=== PATIENT | female | born 1980 | race Caucasian/White ===

== ENCOUNTER 2016-05-20 13:14 | Inpatient (IN) | payer OTHER ==
[2016-05-20 15:44] VITALS: BMI 20.2
--- NOTE | 2016-05-20 16:46 | HP ---
Admission ROS [facility] Chief Complaint: I need help to stop using drugs. History of Present Illness: 36 y/o m pt with a h/o heroin , , percocet and cocaine dep. seeking rehab . Exam Limitations: No Limitations - Ebola screening Have you traveled outside of the country in the last 21 days: No Have you had contact with anyone from an Ebola affected area: No Have you been sick,other than usual withdrawal symptoms: No Do you have a fever: No - Review of Systems Constitutional: No Symptoms Reported EENT: reports: No Symptoms Reported Respiratory: reports: No Symptoms reported GI: reports: No Symptoms Reported, Indigestion : reports: No Symptoms Reported Integumentary: reports: No Symptoms Reported Neuro: reports: No Symptoms reported Hematology: reports: No Symptoms Reported Psychiatric: reports: Agitated, Anxious, Depressed Other Systems: Reviewed and Negative Patient History - Patient Medical History Hx Anemia: No Hx Asthma: No Hx Chronic Obstructive Pulmonary Disease (COPD): No Hx Cancer: No Hx Cardiac Disorders: No Hx Congestive Heart Failure: No Hx Hypertension: No Hx Hypercholesterolemia: No Hx Pacemaker: No HX Cerebrovascular Accident: No Hx Seizures: No Hx Dementia: No Hx Diabetes: No Hx Gastrointestinal Disorders: Yes (gerd) Hx Liver Disease: No Hx Genitourinary Disorders: No Hx Sexually Transmitted Disorders: No Hx Renal Disease (ESRD): No Hx Thyroid Disease: No Hx Hepatitis C: No Hx Depression: Yes Hx Suicide Attempt: Yes (2012 attempted to hang herself ) Hx Bipolar Disorder: Yes (ptsd) Hx Schizophrenia: No - Patient Surgical History Other Surgical History: 2009 ectopic rupture - PPD History Previous Implant?: No Documented Results: Positive w/o proof PPD to be Administered?: No - Reproductive History Patient is a Female of Child Bearing Age (11 -55 yrs old): Yes Last Menstrual Period: 05/19/16 Patient : No - Smoking Cessation Smoking history: Current every day smoker Have you smoked in the past 12 months: Yes Aproximately how many cigarettes per day: 8 Cigars Per Day: 0 Hx Chewing Tobacco Use: No Initiated information on smoking cessation: Yes 'Breaking Loose' booklet given: 05/20/16 - Substance & Tx. History Hx Alcohol Use: No Hx Substance Use: Yes Substance Use Type: Cocaine, Heroin, Opiates Hx Substance Use Treatment: Yes - Substances Abused Heroin Frequency: 1-3 times last 30 days Amount used: 2 bags Age of first use: 36 Date of Last Use: 05/15/16 percocet 10/325 Route: Oral Frequency: Daily Amount used: 4-6 tabs/d Age of first use: 35 Date of Last Use: 05/13/16 Crack Route: Smoking Amount used: $20. Age of first use: 25 Date of Last Use: 05/16/16 Family Disease History - Family Disease History Family History: Denies Admission Physical Exam [facility] - Vital Signs Vital Signs: Vital Signs - 24 hr 05/20/16 15:41 Temperature 97 F L Pulse Rate 79 Respiratory 20 Rate Blood Pressure 126/80 - Physical General Appearance: Yes: Disheveled, Anxious HEENTM: Yes: EOMI, Hearing grossly Normal, Normocephalic, Normal Voice Respiratory: Yes: Within Normal Limits, Chest Non-Tender, Normal Breath Sounds, Labored Respiration Neck: Yes: No masses,lesions,Nodules, Supple Breast: Yes: Breast Exam Deferred Abdominal: Yes: Normal Bowel Sounds, Non Tender, Flat, Soft. No: Decreased BS Genitourinary: Yes: Within Normal Limits Back: Yes: Within Normal Limits Musculoskeletal: Yes: Within Normal Limits Extremities: Yes: Within Normal Limits Neurological: Yes: Within Normal Limits, clay miller II-XII NML intact, Fully Oriented, Alert, Motor Strength 5/5, Respond to painful stimul Integumentary: Yes: Within Normal Limits Lymphatic: Yes: Within Normal Limits - Diagnostic (1) Opioid dependence Current Visit: Yes Status: Chronic Qualifiers: Complication of substance-induced condition: uncomplicated (2) Cocaine dependence Current Visit: Yes Status: Chronic (3) Nicotine dependence Current Visit: Yes Status: Chronic Qualifiers: Nicotine product type: cigarettes Substance use status: uncomplicated Qualified Code(s): F17.210 - Nicotine dependence, cigarettes, uncomplicated Cleared for Admission [facility] - Detox or Rehab Claeared for Rehab Admission: Yes [facility] Breath Alcohol Content Breath Alcohol Content: 0 Urine Pregancy Test - Result Urine Test Results: Negative- NO Line Present Urine Drug Screen - Results Drug Screen Negative: No Urine Drug Screen Results: JESSENIA-Cocaine, OPI-Opiates, MTD-Methadone
[2016-05-20] MEDS ORDERED: MAGNESIUM HYDROX 2400MG/30ML ORAL SUSPENSION 30 ML CUP PO PRN (17:06)
[2016-05-20] MEDS ORDERED: P-EPHED 60MG/TRIPROLIDI 2.5MG TABLET PO PRN (17:06)
[2016-05-20] MEDS ORDERED: MENTHOL/PHENOL 1 EACH UD MM PRN (17:06)
[2016-05-20] MEDS ORDERED: guaiFENesin/D-METHORPHAN HB 10 ML UNIT-DOSE CUPS PO PRN (17:06)
[2016-05-20] MEDS ORDERED: diphenhydrAMINE HCL 50 MG CAPSULE PO PRN (17:06)
[2016-05-20] MEDS ORDERED: MAGNESIUM CITRATE 300 ML BOTTLE PO PRN (17:06)
[2016-05-20] MEDS ORDERED: NICOTINE POLACRILEX 4 MG GUM BC PRN (17:06)
[2016-05-20] MEDS ORDERED: LOPERAMIDE HCL 2 MG CAPSULE PO PRN (17:06)
[2016-05-20] MEDS: THIAMINE HCL 100 MG TABLET (FP) PO SCH (22:46)
[2016-05-20] MEDS: OLANZapine 7.5 MG TABLET PO SCH (22:46)
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
--- NOTE | 2016-05-21 10:00 | EKG ---
Test Reason : Blood Pressure : / mmHG Vent. Rate : 072 BPM Atrial Rate : 072 BPM P-R Int : 154 ms QRS Dur : 084 ms QT Int : 392 ms P-R-T Axes : 062 033 060 degrees QTc Int : 429 ms NORMAL SINUS RHYTHM POOR R WAVE PROGRESSION ABNORMAL ECG NO PREVIOUS ECGS AVAILABLE Confirmed by HEIKE VAUGHN MD ([id number]) on 05/21/2016 10:00:23 AM Referred By: Confirmed By:HEIKE VAUGHN MD
[2016-05-21] MEDS: NICOTINE 14 MG/24 HOURS TOPICAL PATCH TD SCH (10:08)
[2016-05-21] MEDS: PRENATAL VITAMINS W/ FOLIC ACID TABLET (FP) PO SCH (10:08)
[2016-05-21 10:11] LABS: MCH 31.3 pg (25.7-33.7); MCHC 33.6 g/dl (32.0-36.0); MEAN CELL VOLUME 93.1 fl (80-96); MEAN PLT VOLUME 9.5 fl (7.5-11.1); PLATELET COUNT 209 K/MM3 (134-434); RDW 13.1 % (11.6-15.6); WHITE BLOOD COUNT 6.1 K/mm3 (4.0-10.0)
[2016-05-21 10:34] LABS: ALBUMIN 3.2 g/dl (3.4-5.0); ANION GAP 8 (8-16); CALCIUM 8.4 mg/dL (8.5-10.1); CO2 26 mmol/L (21-32); COCKROFT - GAULT 96.1265; CREATININE 0.7 mg/dL (0.55-1.02); GLUCOSE,RANDOM 89 mg/dL (74-106); SGOT/AST 11 U/L (15-37)
[2016-05-21 10:37] LABS: ALK PHOS 47 U/L (45-117); BILIRUBIN,TOTAL 0.1 mg/dL (0.2-1.0); SGPT/ALT 15 U/L (12-78)
--- NOTE | 2016-05-21 11:31 | PN ---
[facility] Progress Note Note: xray right foot noted,advise follow up with pmd or ear nose throat physician if nay problem after discharge
[2016-05-21] MEDS: IBUPROFEN 400 MG TABLET (FP) PO PRN (11:54)
[2016-05-21 17:58] LABS: URINE APPEARANCE SLCLOUDY; URINE BILIRUBIN NEGATIVE (NEGATIVE); URINE BLOOD 1+ (NEGATIVE); URINE COLOR YELLOW; URINE GLUCOSE (UA) NEGATIVE (NEGATIVE); URINE KETONE NEGATIVE (NEGATIVE); URINE LEUK ESTERASE TRACE (NEGATIVE); URINE NITRITE NEGATIVE (NEGATIVE); URINE PROTEIN NEGATIVE (NEGATIVE); URINE UROBILINOGEN NEGATIVE E.U./dl (0.2-1.0)
[2016-05-21 19:15] LABS: CALCIUM OXALATE CRYSTALS MANY /hpf (NONE SEEN); URINE MUCUS FEW; URINE RBC 46 /hpf (0-3); URINE WBC 4 /hpf (3-5)
[2016-05-21] MEDS: OLANZapine 7.5 MG TABLET PO SCH (21:15)
[2016-05-21] MEDS: ACETAMINOPHEN 325 MG TABLET (FP) PO PRN (21:15)
[2016-05-21] MEDS: THIAMINE HCL 100 MG TABLET (FP) PO SCH (21:15)
[2016-05-22] MEDS: PRENATAL VITAMINS W/ FOLIC ACID TABLET (FP) PO SCH (10:04)
[2016-05-22] MEDS: NICOTINE 14 MG/24 HOURS TOPICAL PATCH TD SCH (10:04)
[2016-05-22] MEDS ORDERED: PT OWN MED DRAWER 7, Y5N ONE (19:16)
[2016-05-22] MEDS: THIAMINE HCL 100 MG TABLET (FP) PO SCH (21:13)
[2016-05-22] MEDS: ACETAMINOPHEN 325 MG TABLET (FP) PO PRN (22:05)
[2016-05-22] MEDS: OLANZapine 7.5 MG TABLET PO SCH (22:05)
[2016-05-22] MEDS: MAG HYDROX/AL HYDROX/SIMETH 30 ML UNIT-DOSE CUP PO PRN (22:05)
[2016-05-23] MEDS: PRENATAL VITAMINS W/ FOLIC ACID TABLET (FP) PO SCH (10:19)
[2016-05-23] MEDS: NICOTINE 14 MG/24 HOURS TOPICAL PATCH TD SCH (10:19)
[2016-05-23] MEDS: ACETAMINOPHEN 325 MG TABLET (FP) PO PRN ×2 (15:03→21:14)
[2016-05-23] MEDS: OLANZapine 7.5 MG TABLET PO SCH (21:13)
[2016-05-23] MEDS: THIAMINE HCL 100 MG TABLET (FP) PO SCH (21:13)
[2016-05-24] MEDS: PRENATAL VITAMINS W/ FOLIC ACID TABLET (FP) PO SCH (10:51)
[2016-05-24] MEDS: NICOTINE 14 MG/24 HOURS TOPICAL PATCH TD SCH (10:51)
[2016-05-24] MEDS: ACETAMINOPHEN 325 MG TABLET (FP) PO PRN ×2 (16:01→21:52)
[2016-05-24] MEDS: MAG HYDROX/AL HYDROX/SIMETH 30 ML UNIT-DOSE CUP PO PRN (16:02)
[2016-05-24] MEDS: THIAMINE HCL 100 MG TABLET (FP) PO SCH (21:11)
[2016-05-24] MEDS: OLANZapine 7.5 MG TABLET PO SCH (21:12)
[2016-05-25] MEDS: ACETAMINOPHEN 325 MG TABLET (FP) PO PRN (09:06)
[2016-05-25] MEDS: NICOTINE 14 MG/24 HOURS TOPICAL PATCH TD SCH (09:07)
[2016-05-25] MEDS: PRENATAL VITAMINS W/ FOLIC ACID TABLET (FP) PO SCH (09:07)
[2016-05-25] MEDS ORDERED: PT OWN MED DRAWER 7, Y5N ONE (21:43)
[2016-05-25] MEDS: OLANZapine 7.5 MG TABLET PO SCH (22:07)
[2016-05-25] MEDS: THIAMINE HCL 100 MG TABLET (FP) PO SCH (22:07)
[2016-05-26] MEDS: PRENATAL VITAMINS W/ FOLIC ACID TABLET (FP) PO SCH (10:12)
[2016-05-26] MEDS: NICOTINE 14 MG/24 HOURS TOPICAL PATCH TD SCH (10:13)
[2016-05-26] MEDS: COLLOIDAL OATMEAL 1 BAR EACH TP PRN (17:27)
[2016-05-26] MEDS: THIAMINE HCL 100 MG TABLET (FP) PO SCH (21:21)
[2016-05-26] MEDS: OLANZapine 7.5 MG TABLET PO SCH (21:21)
[2016-05-27] MEDS ORDERED: PT OWN MED DRAWER 7, Y5N ONE ×2 (08:54→21:02)
[2016-05-27] MEDS: PRENATAL VITAMINS W/ FOLIC ACID TABLET (FP) PO SCH (10:09)
[2016-05-27] MEDS: NICOTINE 14 MG/24 HOURS TOPICAL PATCH TD SCH (10:10)
[2016-05-27] MEDS: MAG HYDROX/AL HYDROX/SIMETH 30 ML UNIT-DOSE CUP PO PRN (10:12)
[2016-05-27] MEDS ORDERED: FLUCONAZOLE 50 MG TABLET PO ONE (14:28)
[2016-05-27] MEDS: IBUPROFEN 400 MG TABLET (FP) PO PRN (18:22)
[2016-05-27] MEDS: OLANZapine 7.5 MG TABLET PO SCH (21:02)
[2016-05-27] MEDS: ACETAMINOPHEN 325 MG TABLET (FP) PO PRN (21:02)
[2016-05-27] MEDS: THIAMINE HCL 100 MG TABLET (FP) PO SCH (21:03)
[2016-05-28] MEDS: NICOTINE 14 MG/24 HOURS TOPICAL PATCH TD SCH (10:09)
[2016-05-28] MEDS: PRENATAL VITAMINS W/ FOLIC ACID TABLET (FP) PO SCH (10:09)
[2016-05-28] MEDS: IBUPROFEN 400 MG TABLET (FP) PO PRN (10:29)
[2016-05-28] MEDS ORDERED: hydrOXYzine PAMOATE 50 MG CAPSULE (FP) PO PRN (10:45)
--- NOTE | 2016-05-28 10:55 | PN ---
Psychiatric Progress Note Vital Signs: Vital Signs Period Temp Pulse Resp BP Sys/Aldridge Pulse Ox Last 24 Hr 98.6 F 81 18-18 114/68 Date of Session: 05/28/16 Chief Complaint:: "I'm feeling anxious and can't sleep" HPI: Patient addressing Opoid and Cocaine Dependence comorbid with Nicotine Dependence, Bipolar II Disorder and Posttraumatic Stress Disorder ROS: GERD, PPD+ Current Medications: Active Medications Generic Name Dose Route Start Last Admin Trade Name Freq PRN Reason Stop Dose Admin Acetaminophen 650 mg 05/20/16 17:06 05/27/16 21:02 Tylenol - PO 650 mg Q4H PRN Administration PAIN Al Hydroxide/Mg Hydroxide 30 ml 05/20/16 17:06 05/27/16 10:12 Mylanta Oral Suspension - PO 30 ml Q6H PRN Administration DYSPEPSIA Bupropion HCl 300 mg 05/21/16 10:00 05/28/16 10:10 Wellbutrin Xl - PO 300 mg DAILY DONNY Administration Colloidal Oatmeal 1 applic 05/26/16 12:45 05/26/16 17:27 Aveeno Soap - TP 1 applic DAILY PRN Administration HYGEINE Diphenhydramine HCl 50 mg 05/20/16 17:06 05/27/16 21:01 Benadryl - PO 50 mg HSMR1 PRN Administration INSOMNIA Eucalyptus/Menthol/Phenol/Sorbitol 1 each 05/20/16 17:06 Cepastat Lozenge - MM Q4H PRN SORE THROAT Guaifenesin 10 ml 05/20/16 17:06 05/25/16 09:07 Robitussin Dm - PO 10 ml Q6H PRN Administration COUGH Hydroxyzine Pamoate 50 mg 05/28/16 10:45 Vistaril - PO Q4H PRN ANXIETY Ibuprofen 400 mg 05/20/16 17:06 05/28/16 10:29 Motrin - PO 400 mg Q6H PRN Administration SEVERE PAIN Loperamide HCl 4 mg 05/20/16 17:06 Imodium - PO Q6H PRN DIARRHEA Magnesium Citrate 300 ml 05/20/16 17:06 Citroma - PO Q48H PRN CONSTIPATION Magnesium Hydroxide 30 ml 05/20/16 17:06 Milk Of Magnesia - PO DAILY PRN CONSTIPATION Nicotine 14 mg 05/21/16 10:00 05/28/16 10:09 Nicoderm Patch - TD 14 mg DAILY DONNY Administration Nicotine Polacrilex 4 mg 05/20/16 17:06 Nicorette Gum - BC Q2H PRN NICOTINE REPLACEMENT RX Olanzapine 7.5 mg 05/28/16 20:00 Zyprexa - PO HS DONNY Multivit/Folic Acid/Iron 1 tab 05/21/16 10:00 05/28/16 10:09 Vitamins (Sjr) - PO 1 tab DAILY DONNY Administration Pseudoephedrine/Triprolidine 1 combo 05/20/16 17:06 Actifed - PO TID PRN NASAL CONGESTION Thiamine HCl 100 mg 05/20/16 22:00 05/27/16 21:03 Vitamin B1 - PO 100 mg HS DONNY Administration Medication(s) Change(s): Start Vistaril 50 mg po Q4 hrs prn for anxiety Current Side Effect: No Lab tests ordered: Yes Lab tests reviewed: Yes Provider note:: Patient reports that she has been feeling anxious and sleeping poorly. She said that she has used Xanax before but she is aware that she will not be prescribed that medication in that setting. She requests to be ordered Vistaril. Benefits vs Risks of medication discussed with patient and she agreed to try it Total face to face time:: 25 Mental Status Exam - Mental Status Exam Alert and Oriented to: Time, Place, Person Cognitive Function: Fair Patient Appearance: Well Groomed Mood: Anxious Affect: Appropriate Patient Behavior: Cooperative Speech Pattern: Clear Voice Loudness: Normal Thought Process: Intact Thought Disorder: Not Present Hallucinations: Denies Suicidal Ideation: Denies Homicidal Ideation: Denies Insight/Judgement: Fair Sleep: Poorly Appetite: Good Muscle strength/Tone: Normal Gait/Station: Normal Psychiatric Treatment Plan - Problem List (1) Opioid dependence Current Visit: Yes Qualifiers: Complication of substance-induced condition: uncomplicated (2) Cocaine dependence Current Visit: Yes (3) Nicotine dependence Current Visit: Yes Qualifiers: Nicotine product type: cigarettes Substance use status: uncomplicated Qualified Code(s): F17.210 - Nicotine dependence, cigarettes, uncomplicated (4) Bipolar II disorder Current Visit: Yes (5) PTSD (post-traumatic stress disorder) Current Visit: Yes (6) GERD (gastroesophageal reflux disease) Current Visit: Yes (7) PPD positive Current Visit: Yes Initial treatment plan: 1) Start Vistaril 50 mg po Q 4hrs prn for anxiety. 2) Monitor progress
[2016-05-28] MEDS: CYCLOBENZAPRINE HCL 10 MG TABLET (FP) PO SCH ×2 (11:23→21:39)
[2016-05-28] MEDS: ACETAMINOPHEN 325 MG TABLET (FP) PO PRN ×2 (13:17→18:07)
[2016-05-28] MEDS ORDERED: PT OWN MED DRAWER 7, Y5N ONE ×3 (19:48→20:40)
[2016-05-28] MEDS: OLANZapine 7.5 MG TABLET PO SCH ×2 (20:00→21:52)
[2016-05-28] MEDS: THIAMINE HCL 100 MG TABLET (FP) PO SCH (21:39)
[2016-05-29] MEDS: ACETAMINOPHEN 325 MG TABLET (FP) PO PRN ×3 (00:54→16:23)
[2016-05-29] MEDS: CYCLOBENZAPRINE HCL 10 MG TABLET (FP) PO SCH ×2 (10:05→21:26)
[2016-05-29] MEDS: NICOTINE 14 MG/24 HOURS TOPICAL PATCH TD SCH (10:05)
[2016-05-29] MEDS: PRENATAL VITAMINS W/ FOLIC ACID TABLET (FP) PO SCH (10:05)
[2016-05-29] MEDS: THIAMINE HCL 100 MG TABLET (FP) PO SCH (21:26)
[2016-05-29] MEDS ORDERED: PT OWN MED DRAWER 7, Y5N ONE (21:26)
[2016-05-29] MEDS: OLANZapine 7.5 MG TABLET PO SCH (21:26)
[2016-05-30] MEDS: NICOTINE 14 MG/24 HOURS TOPICAL PATCH TD SCH (09:47)
[2016-05-30] MEDS: CYCLOBENZAPRINE HCL 10 MG TABLET (FP) PO SCH ×2 (09:47→23:14)
[2016-05-30] MEDS: PRENATAL VITAMINS W/ FOLIC ACID TABLET (FP) PO SCH (09:47)
[2016-05-30] MEDS: ACETAMINOPHEN 325 MG TABLET (FP) PO PRN (17:29)
[2016-05-30] MEDS: IBUPROFEN 400 MG TABLET (FP) PO PRN (21:07)
[2016-05-30] MEDS: OLANZapine 7.5 MG TABLET PO SCH (21:07)
[2016-05-30] MEDS: THIAMINE HCL 100 MG TABLET (FP) PO SCH (23:14)
[2016-05-31] MEDS: NICOTINE 14 MG/24 HOURS TOPICAL PATCH TD SCH (10:03)
[2016-05-31] MEDS: PRENATAL VITAMINS W/ FOLIC ACID TABLET (FP) PO SCH (10:03)
[2016-05-31] MEDS: CYCLOBENZAPRINE HCL 10 MG TABLET (FP) PO SCH ×2 (10:03→21:22)
[2016-05-31 10:53] LABS: HIV 1 & 2 AB NEGATIVE; HIV 1 AGp24 NEGATIVE
[2016-05-31] MEDS: IBUPROFEN 400 MG TABLET (FP) PO PRN (13:36)
[2016-05-31] MEDS ORDERED: PT OWN MED DRAWER 7, Y5N ONE (19:38)
[2016-05-31] MEDS: OLANZapine 7.5 MG TABLET PO SCH (21:22)
[2016-05-31] MEDS: THIAMINE HCL 100 MG TABLET (FP) PO SCH (21:22)
[2016-05-31] MEDS: ACETAMINOPHEN 325 MG TABLET (FP) PO PRN (21:23)
[2016-06-01 06:38] VITALS: TEMP 98.3
[2016-06-01] MEDS: ACETAMINOPHEN 325 MG TABLET (FP) PO PRN ×2 (07:37→21:23)
[2016-06-01] MEDS: NICOTINE 14 MG/24 HOURS TOPICAL PATCH TD SCH (10:06)
[2016-06-01] MEDS: PRENATAL VITAMINS W/ FOLIC ACID TABLET (FP) PO SCH (10:06)
[2016-06-01] MEDS: CYCLOBENZAPRINE HCL 10 MG TABLET (FP) PO SCH ×2 (10:07→23:43)
[2016-06-01] MEDS ORDERED: PT OWN MED DRAWER 7, Y5N ONE (21:22)
[2016-06-01] MEDS: OLANZapine 7.5 MG TABLET PO SCH (21:22)
[2016-06-01] MEDS: THIAMINE HCL 100 MG TABLET (FP) PO SCH (23:43)
[2016-06-02] MEDS: ACETAMINOPHEN 325 MG TABLET (FP) PO PRN ×2 (07:08→17:04)
[2016-06-02] MEDS: COLLOIDAL OATMEAL 1 BAR EACH TP PRN (07:24)
[2016-06-02] MEDS: PRENATAL VITAMINS W/ FOLIC ACID TABLET (FP) PO SCH (09:48)
[2016-06-02] MEDS: NICOTINE 14 MG/24 HOURS TOPICAL PATCH TD SCH (09:49)
[2016-06-02] MEDS: CYCLOBENZAPRINE HCL 10 MG TABLET (FP) PO SCH ×2 (09:50→21:21)
[2016-06-02] MEDS: MAG HYDROX/AL HYDROX/SIMETH 30 ML UNIT-DOSE CUP PO PRN (19:03)
[2016-06-02] MEDS ORDERED: PT OWN MED DRAWER 7, Y5N ONE (19:36)
[2016-06-02] MEDS: OLANZapine 7.5 MG TABLET PO SCH (21:21)
[2016-06-02] MEDS: THIAMINE HCL 100 MG TABLET (FP) PO SCH (21:21)
[2016-06-03] MEDS: ACETAMINOPHEN 325 MG TABLET (FP) PO PRN (06:22)
[2016-06-03 06:48] VITALS: BP 117/78; PULSE 96
--- NOTE | 2016-06-03 09:15 | PN ---
Psychiatric Progress Note Vital Signs: Vital Signs Period Temp Pulse Resp BP Sys/Aldridge Pulse Ox Last 24 Hr 98.3 F 96 18-18 117/78 Date of Session: 06/03/16 Chief Complaint:: Discharge Note HPI: Patient addressing Opoid and Cocaine Dependence comorbid with Nicotine Dependence, Bipolar II Disorder and Posttraumatic Stress Disorder ROS: GERD, PPD+ were medically managed Current Medications: Active Medications Generic Name Dose Route Start Last Admin Trade Name Freq PRN Reason Stop Dose Admin Acetaminophen 975 mg 05/31/16 13:31 06/03/16 06:22 Tylenol - PO 975 mg Q6H PRN Administration PAIN Al Hydroxide/Mg Hydroxide 30 ml 05/20/16 17:06 06/02/16 19:03 Mylanta Oral Suspension - PO 30 ml Q6H PRN Administration DYSPEPSIA Bupropion HCl 300 mg 05/21/16 10:00 06/02/16 09:48 Wellbutrin Xl - PO 300 mg DAILY DONNY Administration Colloidal Oatmeal 1 applic 05/26/16 12:45 06/02/16 07:24 Aveeno Soap - TP 1 applic DAILY PRN Administration HYGEINE Cyclobenzaprine HCl 10 mg 05/28/16 11:15 06/02/16 21:21 Flexeril - PO Not Given BID DONNY Diphenhydramine HCl 50 mg 05/20/16 17:06 05/27/16 21:01 Benadryl - PO 50 mg HSMR1 PRN Administration INSOMNIA Eucalyptus/Menthol/Phenol/Sorbitol 1 each 05/20/16 17:06 Cepastat Lozenge - MM Q4H PRN SORE THROAT Guaifenesin 10 ml 05/20/16 17:06 05/25/16 09:07 Robitussin Dm - PO 10 ml Q6H PRN Administration COUGH Hydroxyzine Pamoate 50 mg 05/28/16 10:45 05/28/16 21:39 Vistaril - PO 50 mg Q4H PRN Administration ANXIETY Ibuprofen 400 mg 05/20/16 17:06 05/31/16 13:36 Motrin - PO 400 mg Q6H PRN Administration SEVERE PAIN Loperamide HCl 4 mg 05/20/16 17:06 Imodium - PO Q6H PRN DIARRHEA Magnesium Citrate 300 ml 05/20/16 17:06 Citroma - PO Q48H PRN CONSTIPATION Magnesium Hydroxide 30 ml 05/20/16 17:06 Milk Of Magnesia - PO DAILY PRN CONSTIPATION Nicotine 14 mg 05/21/16 10:00 06/02/16 09:49 Nicoderm Patch - TD 14 mg DAILY DONNY Administration Nicotine Polacrilex 4 mg 05/20/16 17:06 Nicorette Gum - BC Q2H PRN NICOTINE REPLACEMENT RX Olanzapine 7.5 mg 05/28/16 20:00 06/02/16 21:21 Zyprexa - PO 7.5 mg HS DONNY Administration Multivit/Folic Acid/Iron 1 tab 05/21/16 10:00 06/02/16 09:48 Vitamins (Sjr) - PO 1 tab DAILY DONNY Administration Pseudoephedrine/Triprolidine 1 combo 05/20/16 17:06 Actifed - PO TID PRN NASAL CONGESTION Thiamine HCl 100 mg 05/20/16 22:00 06/02/16 21:21 Vitamin B1 - PO Not Given HS DONNY Current Side Effect: No Lab tests ordered: Yes Lab tests reviewed: Yes Provider note:: Patient has completed this progra today. She has met her treatment goals and will continue to address her issues in outpatient treatment at [facility]. Told publications writer that from her participation in this program, she has gained insight into the issues resposible for her addiction and has learned of ways to address them. She responded well to Wellbutrin XL 300 mg po daily and Zyprexa 7.5 mg po HS. Scripts for 30 days supply of these 2 medications are electronically transmitted to [facility] pharmacy at [address] [place] [address]. She is stable for discharge today Total face to face time:: 35 Mental Status Exam - Mental Status Exam Alert and Oriented to: Time, Place, Person Cognitive Function: Fair Patient Appearance: Well Groomed Mood: Hopeful, Euthymic Affect: Appropriate Patient Behavior: Cooperative Speech Pattern: Clear Voice Loudness: Normal Thought Process: Intact Thought Disorder: Not Present Hallucinations: Denies Suicidal Ideation: Denies Homicidal Ideation: Denies Insight/Judgement: Fair Sleep: Fair Appetite: Good Muscle strength/Tone: Normal Gait/Station: Normal Psychiatric Treatment Plan - Problem List (1) Opioid dependence Qualifiers: Complication of substance-induced condition: uncomplicated (3) Nicotine dependence Qualifiers: Nicotine product type: cigarettes Substance use status: uncomplicated Qualified Code(s): F17.210 - Nicotine dependence, cigarettes, uncomplicated (7) PPD positive Initial treatment plan: Patient is discharged today and referred to [facility] for outpatient treatment
[2016-06-03] MEDS: NICOTINE 14 MG/24 HOURS TOPICAL PATCH TD SCH (09:42)
[2016-06-03] MEDS: PRENATAL VITAMINS W/ FOLIC ACID TABLET (FP) PO SCH (09:42)
[2016-06-03] MEDS: CYCLOBENZAPRINE HCL 10 MG TABLET (FP) PO SCH (09:42)
== END 2016-06-03 10:05 | disposition home or self-care (01) | DRG 772 ==
LOC: YASAS 13:14 → Y3W 17:30
PROVIDERS: ADMIT Psychiatry & Neurology Psychiatry; ATTEND Psychiatry & Neurology Psychiatry
PROC: HZ42ZZZ Group Counseling for Substance Abuse Treatment, Cognitive-Behavioral (ICD-10-PCS; principal; 2016-05-20)
DX: F11.20 Opioid dependence, uncomplicated (principal); F14.20 Cocaine dependence, uncomplicated; F17.210 Nicotine dependence, cigarettes, uncomplicated; F31.81 Bipolar II disorder; F43.10 Post-traumatic stress disorder, unspecified; K21.9 Gastro-esophageal reflux disease without esophagitis; R76.11 Nonspecific reaction to tuberculin skin test without active tuberculosis; Z91.5 Personal history of self-harm
CPT/HCPCS: 36415; 71020-TC; 73630-TC-RT; 80053; 81003; 81015; 84702; 85027; 86593; 87389; 93005; 93010

== ENCOUNTER 2019-08-17 18:12 | Inpatient (IN) | payer OTHER ==
--- NOTE | 2019-08-17 22:04 | HP ---
COWS - Scale Resting Pulse: 0= [place] 80 or Below Sweatin= Chills/Flushing Restless Observation: 5= Unable to Sit Still Pupil Size: 0= Normal to Room Light Bone or Joint Aches: 4=Acute Joint/Muscle Pain Runny Nose/ Eye Tearin= Nasal Congestion GI Upset > 30mins: 0= None Tremor Observation: 0= None Yawning Observation: 0= None Anxiety or Irritability: 2=Irritable/Anxious Goose Flesh Skin: 0=Smooth Skin COWS Score: 13 CIWA Score Nausea/Vomitin-No Nausea/No Vomiting Muscle Tremors: None Anxiety: 4-Mod. Anxious/Guarded Agitation: 4-Moderately Restless Paroxysmal Sweats: 3 Orientation: 0-Oriented Tacttile Disturbances: 0-None Auditory Disturbances: 0-None Visual Disturbances: 0-None Headache: 3-Moderate CIWA-Ar Total Score: 14 - Admission Criteria OASAS Guidelines: Admission for Medically Managed Detox: Requires at least one of the followin. CIWA greater than 12 2. Seizures within the past 24 hours 3. Delirium tremens within the past 24 hours 4. Hallucinations within the past 24 hours 5. Acute intervention needed for co occurring medical disorder 6. Acute intervention needed for co occurring psychiatric disorder 7. Severe withdrawal that cannot be handled at a lower level of care (continued vomiting, continued diarrhea, abnormal vital signs) requiring intravenous medication and/or fluids 8. Patient presents the following: CIWA greater than 12 Admission Criteria Met: Admission criteria met Admitting History and Physical - Past Medical History ...LMP: 05/19/16 - Smoking History Smoking history: Current every day smoker Have you smoked in the past 12 months: Yes Aproximately how many cigarettes per day: 8 - Alcohol/Substance Use Hx Alcohol Use: No Admission ROS [facility] Chief Complaint: SEEKING DETOX FOR XANAX AND HEROIN. C/O WITHDRAWAL SX'S Allergies/Adverse Reactions: Allergies Allergy/AdvReac Type Severity Reaction Status Date / Time medroxyprogesterone acetate Allergy Intermediate Hives Verified 06/29/11 19:24 [From Depo-Provera Contraceptive] History of Present Illness: HERE FOR HEROIN/ XANAX DEPENDENCE. CLIENT IS KNOWN TO THE PROGRAM. SELF REFERRED. LAST HERE 2016. PRESENTS TODAY WITH C/O WITHDRAWAL SX'S. USING HEROIN, XANAX DAILY. LAST USE EARLY THIS MORNING. DENIES HX/O IVDU, DRUG OVERDOSE, BLACKOUTS, SEIZURES. DENIES ANY SIGNIFICANT PERIOD OF CLEAN TIME IN THE PAST 12 MONTHS. LIVES ALONE, UNEMPLOYED, DENIES LEGALS Exam Limitations: No Limitations - Ebola screening Have you traveled outside of the country in the last 21 days: No Have you had contact with anyone from an Ebola affected area: No Have you been sick,other than usual withdrawal symptoms: No Do you have a fever: No - Review of Systems Constitutional: Chills, Loss of Appetite, Malaise, Night Sweats, Changes in sleep, Unintentional Wgt. Loss EENT: reports: Nose Congestion Respiratory: reports: Other (HX/O +PPD) Cardiac: reports: No Symptoms Reported GI: reports: Poor Appetite, Poor Fluid Intake : reports: No Symptoms Reported Musculoskeletal: reports: Back Pain, Joint Pain, Neck Pain, Other (SCOLIOSIS) Integumentary: reports: No Symptoms Reported Neuro: reports: Headache, Numbness (PINCHED NERVE IN RIGHT HAND) Endocrine: reports: No Symptoms Reported Hematology: reports: Anemia Psychiatric: reports: Orientated x3, Agitated (IRRITBALE), Anxious, Depressed Other Systems: Reviewed and Negative Patient History - Patient Medical History Hx Anemia: Yes Hx Asthma: No Hx Chronic Obstructive Pulmonary Disease (COPD): No Hx Cancer: No Hx Cardiac Disorders: No Hx Congestive Heart Failure: No Hx Hypertension: No Hx Hypercholesterolemia: No Hx Pacemaker: No HX Cerebrovascular Accident: No Hx Seizures: No Hx Dementia: No Hx Diabetes: No Hx Gastrointestinal Disorders: Yes (GERD) Hx Liver Disease: No Hx Genitourinary Disorders: No Hx Sexually Transmitted Disorders: No Hx Renal Disease (ESRD): No Hx Thyroid Disease: No Hx Human Immunodeficiency Virus (HIV): No Hx Hepatitis C: No Hx Depression: Yes Hx Suicide Attempt: Yes (2012 attempted to hang herself ) Hx Bipolar Disorder: Yes (ptsd) Hx Schizophrenia: No Other Medical History: DENIES - Patient Surgical History Past Surgical History: Yes Hx Neurologic Surgery: No Hx Cataract Extraction: No Hx Cardiac Surgery: No Hx Lung Surgery: No Hx Breast Surgery: No Hx Breast Biopsy: No Hx Abdominal Surgery: No Hx Appendectomy: No Hx Cholecystectomy: No Hx Genitourinary Surgery: No Hx Section: No Hx Orthopedic Surgery: No Other Surgical History: 2009 ectopic rupture Anesthesia Reaction: No - PPD History Previous Implant?: Yes Documented Results: Positive w/o proof Implanted On Prior [facility] Admission?: No Results: 2017 CXR - PPD to be Administered?: No - Reproductive History Last Menstrual Period: 08/10/19 (NUVA RING) LMP comment: [place] : [place] [facility] - Smoking Cessation Smoking history: Current every day smoker Have you smoked in the past 12 months: Yes Aproximately how many cigarettes per day: 10 Cigars Per Day: 0 Hx Chewing Tobacco Use: No Initiated information on smoking cessation: Yes 'Breaking Loose' booklet given: 08/17/19 - Substance & Tx. History Hx Alcohol Use: Yes Hx Substance Use: Yes Substance Use Type: Cocaine, Heroin, Tranquilizers (XANAX) Hx Substance Use Treatment: Yes ([facility]) - Substances abused Heroin Substance route: Inhalation Frequency: Daily Amount used: 20 BAGS Age of first use: 38 (6 MONTHS AGO) Date of last use: 08/17/19 Alprazolam (Xanax) Substance route: Oral Frequency: Daily Amount used: 3MG Age of first use: 28 Date of last use: 08/17/19 Cocaine Substance route: Smoking Frequency: Daily Amount used: 100 Age of first use: 23 Date of last use: 08/17/19 Admission Physical Exam S - Vital Signs Vital Signs: Vital Signs - 24 hr 08/17/19 19:11 Temperature 98.3 F Pulse Rate 80 Respiratory 18 Rate Blood Pressure 108/73 - Physical General Appearance: Yes: Moderate Distress, Tremorous (FLET), Irritable, Anxious HEENTM: Yes: EOMI, Normocephalic, Normal Voice, MARAL, Pharynx Normal, Nasal Congestion Respiratory: Yes: Chest Non-Tender, Lungs Clear, Normal Breath Sounds, No Res piratory Distress, No Accessory Muscle Use Neck: Yes: No masses,lesions,Nodules, Supple, Trachea in good position Breast: Yes: Breasts Symetrical Cardiology: Yes: Regular Rhythm, Regular Rate, S1, S2 Abdominal: Yes: Normal Bowel Sounds, Non Tender, Flat, Soft Genitourinary: Yes: Within Normal Limits Back: Yes: Normal Inspection Musculoskeletal: Yes: full range of Motion, Gait Steady Extremities: Yes: Normal Capillary Refill, Normal Range of Motion, Non-Tender, Tremors Neurological: Yes: Fully Oriented, Alert, Motor Strength 5/5, Depressed Affect Integumentary: Yes: Cold (COOL), Clammy Lymphatic: Yes: Within Normal Limits - Diagnostic (1) Opioid dependence with withdrawal Current Visit: Yes Status: Acute (2) Sedative, hypnotic or anxiolytic dependence with withdrawal, uncomplicated Current Visit: Yes Status: Acute (3) Substance induced mood disorder Current Visit: Yes Status: Acute (4) GERD (gastroesophageal reflux disease) Current Visit: Yes Status: Chronic Qualifiers: Esophagitis presence: without esophagitis Qualified Code(s): K21.9 - Gastro-esophageal reflux disease without esophagitis (5) PPD positive Current Visit: Yes Status: Chronic (6) Cocaine dependence Current Visit: Yes Status: Acute Qualifiers: Substance use status: uncomplicated Qualified Code(s): F14.20 - Cocaine dependence, uncomplicated (7) Nicotine dependence Current Visit: Yes Status: Chronic Qualifiers: Nicotine product type: cigarettes Substance use status: uncomplicated Qualified Code(s): F17.210 - Nicotine dependence, cigarettes, uncomplicated Cleared for Admission S - Detox or Rehab [facility] Level of Care: Medically Managed Detox Regimen/Protocol: Methadone/Valium Claeared for Rehab Admission: No Breathalyzer - Breathalyzer Breathalyzer: 0 Urine Drug Screen - Test Device Lot number: [id number] Expiration date: 10/07/20 - Control Is test valid?: Yes - Results Drug screen NEGATIVE: No Urine drug screen results: JESSENIA-Cocaine, FEN-Fentanyl, BZO-Benzodiazepines Inpatient Rehab Admission - Rehab Decision to Admit Inpatient rehab admission?: No
[2019-08-17] MEDS ORDERED: MENTHOL/PHENOL 1 EACH UD MM PRN (22:14)
[2019-08-17] MEDS ORDERED: DICYCLOMINE HCL 10 MG CAPSULE PO PRN (22:14)
[2019-08-17] MEDS ORDERED: MAGNESIUM CITRATE 300 ML BOTTLE PO PRN (22:14)
[2019-08-17] MEDS ORDERED: ONDANSETRON *ODT* 4 MG TABLET SL ONE (22:14)
[2019-08-17] MEDS ORDERED: ACETAMINOPHEN 325 MG TABLET (FP) PO PRN (22:14)
[2019-08-17] MEDS ORDERED: METHADONE HCL 10 MG TABLET (FOR DETOX USE ONLY) PO ONE (22:14)
[2019-08-17] MEDS ORDERED: MAGNESIUM HYDROX 2400MG/30ML ORAL SUSPENSION 30 ML CUP PO PRN (22:14)
[2019-08-17] MEDS ORDERED: guaiFENesin 200 MG/10 ML 10 ML UNIT-DOSE CUPS PO PRN (22:14)
[2019-08-17] MEDS ORDERED: IBUPROFEN 400 MG TABLET (FP) PO PRN (22:14)
[2019-08-17] MEDS ORDERED: cloNIDine HCL 0.1 MG TABLET PO PRN (22:14)
[2019-08-17] MEDS ORDERED: P-EPHED 60MG/TRIPROLIDI 2.5MG TABLET PO PRN (22:14)
[2019-08-17] MEDS: diazePAM 5 MG TABLET PO SCH (23:52)
[2019-08-17] MEDS: ACETAMINOPHEN 325 MG TABLET (FP) PO PRN (23:53)
[2019-08-18] MEDS: diazePAM 5 MG TABLET PO SCH ×3 (05:21→21:56)
[2019-08-18] MEDS: hydrOXYzine PAMOATE 25 MG CAPSULE (FP) PO SCH ×5 (05:22→21:56)
[2019-08-18] MEDS ORDERED: METHADONE HCL 10 MG TABLET (FOR DETOX USE ONLY) ONE (08:21)
[2019-08-18] MEDS ORDERED: METHADONE HCL 5 MG TABLET (FOR DETOX USE ONLY) ONE (08:21)
[2019-08-18] MEDS: MAG HYDROX/AL HYDROX/SIMETH 30 ML UNIT-DOSE CUP PO PRN ×2 (08:42→15:38)
[2019-08-18] MEDS ORDERED: METHADONE (DETOX) 20 MG, METHADONE (DETOX) 5 MG PO ONE (10:00)
[2019-08-18] MEDS: PRENATAL VITAMINS W/ FOLIC ACID TABLET (FP) PO SCH (10:12)
[2019-08-18] MEDS: NICOTINE 14 MG/24 HOURS TOPICAL PATCH TD SCH (10:12)
[2019-08-18] MEDS: NICOTINE POLACRILEX 2 MG GUM BUC PRN ×3 (10:12→21:06)
[2019-08-18 11:34] LABS: EPI CELLS >36 /uL (0-25.1); HYALINE CASTS 2 /uL (0-3.1); URINE APPEARANCE CLOUDY; URINE BACTERIA 1895 /uL (0-1359); URINE BILIRUBIN NEGATIVE (NEGATIVE); URINE COLOR YELLOW; URINE GLUCOSE (UA) NEGATIVE (NEGATIVE); URINE KETONE NEGATIVE (NEGATIVE); URINE LEUK ESTERASE 1+ (NEGATIVE); URINE NITRITE NEGATIVE (NEGATIVE); URINE PROTEIN NEGATIVE (NEGATIVE); URINE RBC 18 /uL (0-23.9); URINE UROBILINOGEN 0.2 mg/dL (0.2-1.0); URINE WBC 128 /uL (0-25.8)
--- NOTE | 2019-08-18 11:36 | EKG ---
Test Reason : Blood Pressure : / mmHG Vent. Rate : 065 BPM Atrial Rate : 065 BPM P-R Int : 156 ms QRS Dur : 074 ms QT Int : 386 ms P-R-T Axes : 068 055 053 degrees QTc Int : 401 ms NORMAL SINUS RHYTHM SEPTAL INFARCT (CITED ON OR BEFORE 17-AUG-2019) ABNORMAL ECG WHEN COMPARED WITH ECG OF 20-MAY-2016 20:17, QUESTIONABLE CHANGE IN INITIAL FORCES OF SEPTAL LEADS Confirmed by LATRICIA WEST MD ([id number]) on 08/18/2019 11:36:02 AM Referred By: Confirmed By:LATRICIA WEST MD
[2019-08-18 11:41] LABS: MCH 30.4 pg (25.7-33.7); MCHC 32.6 g/dl (32.0-36.0); MEAN CELL VOLUME 93.3 fl (80-96); PLATELET COUNT 324 K/MM3 (134-434); RBC 4.29 M/mm3 (3.60-5.2); WHITE BLOOD COUNT 10.5 K/mm3 (4.0-10.0)
[2019-08-18 11:44] LABS: ALBUMIN 3.3 g/dl (3.4-5.0); BILIRUBIN,TOTAL 0.1 mg/dL (0.2-1); BLOOD UREA NITROGEN 9.1 mg/dL (7-18); CREATININE 0.8 mg/dL (0.55-1.3); POTASSIUM 4.5 mmol/L (3.5-5.1)
--- NOTE | 2019-08-18 12:53 | PN ---
[facility] CIWA - CIWA Score Nausea/Vomitin-No Nausea/No Vomiting Muscle Tremors: None Anxiety: 3 Agitation: 2 Paroxysmal Sweats: 3 Orientation: 0-Oriented Tacttile Disturbances: 0-None Auditory Disturbances: 0-None Visual Disturbances: 0-None Headache: 2-Mild CIWA-Ar Total Score: 10 S COWS - Scale Resting Pulse: 0= [place] 80 or Below Sweatin= Beads of Sweat on Face Restless Observation: 1= Difficult to Sit Still Pupil Size: 0= Normal to Room Light Bone or Joint Aches: 2= Severe Diffuse Aches Runny Nose/ Eye Tearin= None GI Upset > 30mins: 0= None Tremor Observation of Outstretched Hands: 0= None Yawning Observation: 1= 1-2x During Session Anxiety or Irritability: 2=Irritable/Anxious Goose Flesh Skin: 0=Smooth Skin COWS Score: 9 [facility] Progress Note (SOAP) Subjective: c/o muscle aches, anxiety, irritability, headache, and sweats. Objective: 08/18/19 12:49 Vital Signs 08/18/19 08/18/19 06:17 08:50 Temperature 97.3 F L 97.3 F L Pulse Rate 66 68 Respiratory 18 18 Rate Blood Pressure 101/60 105/70 O2 Sat by Pulse 98 Oximetry (%) Laboratory Last Values WBC 10.5 K/mm3 (4.0-10.0) H 08/18/19 07:55 RBC 4.29 M/mm3 (3.60-5.2) 08/18/19 07:55 Hgb 13.0 GM/dL (10.7-15.3) 08/18/19 07:55 Hct 40.0 % (32.4-45.2) D 08/18/19 07:55 MCV 93.3 fl (80-96) 08/18/19 07:55 MCH 30.4 pg (25.7-33.7) 08/18/19 07:55 MCHC 32.6 g/dl (32.0-36.0) 08/18/19 07:55 RDW 13.0 % (11.6-15.6) 08/18/19 07:55 Plt Count 324 K/MM3 (134-434) D 08/18/19 07:55 MPV 10.0 fl (7.5-11.1) 08/18/19 07:55 Sodium 140 mmol/L (136-145) 08/18/19 07:55 Potassium 4.5 mmol/L (3.5-5.1) 08/18/19 07:55 Chloride 105 mmol/L (98-107) 08/18/19 07:55 Carbon Dioxide 32 mmol/L (21-32) 08/18/19 07:55 Anion Gap 3 MMOL/L (8-16) L 08/18/19 07:55 BUN 9.1 mg/dL (7-18) 08/18/19 07:55 Creatinine 0.8 mg/dL (0.55-1.3) 08/18/19 07:55 Est GFR (CKD-EPI)AfAm 106.88 08/18/19 07:55 Est GFR (CKD-EPI)NonAf 92.22 08/18/19 07:55 Random Glucose 69 mg/dL (74-106) L 08/18/19 07:55 Calcium 9.0 mg/dL (8.5-10.1) 08/18/19 07:55 Total Bilirubin 0.1 mg/dL (0.2-1) L 08/18/19 07:55 AST 11 U/L (15-37) L 08/18/19 07:55 ALT 15 U/L (13-61) 08/18/19 07:55 Alkaline Phosphatase 57 U/L (45-117) 08/18/19 07:55 Total Protein 7.0 g/dl (6.4-8.2) 08/18/19 07:55 Albumin 3.3 g/dl (3.4-5.0) L 08/18/19 07:55 Urine Color Yellow 08/18/19 07:55 Urine Appearance Cloudy 08/18/19 07:55 Urine pH 7.0 (5.0-8.0) 08/18/19 07:55 Ur Specific [place] 1.023 (1.010-1.035) 08/18/19 07:55 Urine Protein Negative (NEGATIVE) 08/18/19 07:55 Urine Glucose (UA) Negative (NEGATIVE) 08/18/19 07:55 Urine Ketones Negative (NEGATIVE) 08/18/19 07:55 Urine Blood Trace (NEGATIVE) 08/18/19 07:55 Urine Nitrite Negative (NEGATIVE) 08/18/19 07:55 Urine Bilirubin Negative (NEGATIVE) 08/18/19 07:55 Urine Urobilinogen 0.2 mg/dL (0.2-1.0) 08/18/19 07:55 Ur Leukocyte Esterase 1+ (NEGATIVE) H 08/18/19 07:55 Urine WBC (Auto) 128 /uL (0-25.8) 08/18/19 07:55 Urine RBC (Auto) 18 /uL (0-23.9) 08/18/19 07:55 Urine Casts (Auto) 2 /uL (0-3.1) 08/18/19 07:55 U Epithel Cells (Auto) >36 /uL (0-25.1) 08/18/19 07:55 Urine Bacteria (Auto) 1895 /uL (0-1359) 08/18/19 07:55 Syphilis Serology Non-reactive (NONREACTIVE) 08/18/19 07:55 Labs noted. Urinalysis is indicative of uti. 08/18/19 12:50 Assessment: 08/18/19 12:51 AOx 3, in no acute respiratory distress. Full ROM, ambulating in the unit. Withdrawal symptoms. UTI, no supra pubic tenderness noted. Denies any dysuria or burning sensation upon urination. Plan: continue detox. Bactrium DS 1tab po twice/day for 5days.
[2019-08-18] MEDS: SULFAMETHOXAZOLE/TRIMETHOPRIM 800MG/160MG D.S. TABLET PO SCH ×2 (13:17→21:56)
--- NOTE | 2019-08-18 17:11 | CONSULT ---
[facility] Psychiatric Consult - Data Date of interview: 08/18/19 Admission source: [facility] Identifying data: Revisit to [facility] and admission to [address] [place] [address] for this 39 y/o female self-referred for detoxification treatment. ELLEN issues : heroin, cocaine, benzodiazepine (xanax), nicotine. Patient is (divorce pending), mother of three, domiciled, unemployed and supported on SSI benefits. Substance Abuse History: Discussed with the patient. ELLEN profile as follows : Smoking history: Current every day smoker. Have you smoked in the past 12 months: Yes. Aproximately how many cigarettes per day: 10. Cigars Per Day: 0. Hx Chewing Tobacco Use: No. Initiated information on smoking cessation: Yes. 'Breaking Loose' booklet given: 08/17/19. - Substance & Tx. History. Hx Alcohol Use: Yes. Hx Substance Use: Yes. Substance Use Type: Cocaine, Heroin, Tranquilizers (XANAX). Hx Substance Use Treatment: Yes ([facility] - Substances abused. Heroin. Substance route: Inhalation. Frequency: Daily. Amount used: 20 BAGS. Age of first use: 38 (6 MONTHS AGO). Date of last use: 08/17/19. Alprazolam (Xanax). Substance route: Oral. Frequency: Daily. Amount used: 3MG. Age of first use: 28. Date of last use: 08/17/19. Coca ine. Substance route: Smoking. Frequency: Daily. Amount used: 100. Age of first use: 23. Date of last use: 08/17/19 Medical History: Medical profile is remarkable for GERD, positive PPD, anemia, scoliosis and antecedent of surgery in 2008 (rupture of ectopic ). Psychiatric History: Long standing history of psychiatric disturbances (onset at age 15 : behavioral issues). Patient is not able to recall names of medications prescribed at the time. No psychiatric follow-up until age 29. Ms Munson reports sporadic OPD care at [facility] in [place] (no show for more than six months as per own account). Diagnosed with MDD + Bipolar Disorder + PTSD. Questionable historian. She states that she is maintained on wellbutrin XL 300 mg/day + zyprexa 5 mg/hs. Admits to history of two psychiatric hospitalizations ([facility] in 2012 for suicide attempt via hanging + [facility] in 2019). Physical/Sexual Abuse/Trauma History: Not discussed. Patient declines. Additional Comment: Urine drug screen results: JESSENIA-Cocaine, FEN-Fentanyl, BZO- Benzodiazepines. Noted. Mental Status Exam - Mental Status Exam Alert and Oriented to: Time, Place, Person Cognitive Function: Good Patient Appearance: Well Groomed Mood: Nervous, Withdrawn, Anxious Affect: Mood Congruent, Constricted Patient Behavior: Fatigued, Appropriate, Cooperative Speech Pattern: Clear, Appropriate Voice Loudness: Normal Thought Process: Intact, Goal Oriented Thought Disorder: Not Present Hallucinations: Denies Suicidal Ideation: Denies Homicidal Ideation: Denies Insight/Judgement: Poor Sleep: Fair Appetite: Good Gait/Station: Normal Psychiatric Findings - Problem List ([place] 1, 2,3) (1) Opioid dependence with withdrawal Current Visit: Yes Status: Acute Comment: . (2) Sedative, hypnotic or anxiolytic dependence with withdrawal, uncomplicated Current Visit: Yes Status: Acute Comment: . (3) Cocaine dependence Current Visit: Yes Status: Acute Qualifiers: Substance use status: uncomplicated Qualified Code(s): F14.20 - Cocaine dependence, uncomplicated Comment: . (4) Nicotine dependence Current Visit: Yes Status: Chronic Qualifiers: Nicotine product type: cigarettes Substance use status: uncomplicated Qualified Code(s): F17.210 - Nicotine dependence, cigarettes, uncomplicated Comment: . (5) Substance induced mood disorder Current Visit: Yes Status: Acute Comment: . (6) History of posttraumatic stress disorder (PTSD) Current Visit: Yes Status: Chronic Comment: . - Initial Treatment Plan Initial Treatment Plan: Psychoeducation. Sleep hygiene. Detoxification in progress. Manager Inventory Control spoke to pharmacist at [phone] ([id number]) for verification of medications : no refills for wellbutrin XL 150 mg/day + olanzapine 7.5 mg /hs since July 2017. Patient insists on resuming these drugs during this hospital course. Resumed as follows : wellbutrin XL 150 mg po daily + zyprexa 5 mg po hs. Side effects/benefits of both molecules are discussed with the patient. She gave consent (verbal) to MD. Shin.
[2019-08-18] MEDS: FAMOTIDINE 20 MG TABLET PO SCH (18:32)
[2019-08-18] MEDS: MELATONIN 5 MG TABLETS PO SCH (21:56)
[2019-08-18] MEDS: THIAMINE HCL 100 MG TABLET (FP) PO SCH (21:56)
[2019-08-18] MEDS: OLANZapine 10 MG TABLET PO SCH (21:56)
[2019-08-18] MEDS: HYDROCORTISONE 2.5% TOPICAL CREAM 30 GM TUBE PR SCH (22:26)
[2019-08-19] MEDS: diazePAM 5 MG TABLET PO SCH ×2 (05:32→17:12)
[2019-08-19] MEDS: hydrOXYzine PAMOATE 25 MG CAPSULE (FP) PO SCH ×5 (05:32→21:57)
[2019-08-19] MEDS: diazePAM 5 MG TABLET PO PRN ×3 (08:26→19:54)
--- NOTE | 2019-08-19 09:58 | PN ---
S CIWA - CIWA Score Nausea/Vomitin-Mild Nausea/No Vomiting Muscle Tremors: 2 Anxiety: 3 Agitation: 1-Slight > Activity Paroxysmal Sweats: 1-Minimal Palms Moist Orientation: 0-Oriented Tacttile Disturbances: 0-None Auditory Disturbances: 0-None Visual Disturbances: 0-None Headache: 0-None Present CIWA-Ar Total Score: 8 [facility] COWS - Scale Resting Pulse: 0= [place] 80 or Below Sweatin= Chills/Flushing Restless Observation: 0= Sits Still Pupil Size: 1= Pupils >than Normal Bone or Joint Aches: 1= Mild Discomfort Runny Nose/ Eye Tearin= None GI Upset > 30mins: 2= Nausea/Diarrhea Tremor Observation of Outstretched Hands: 2= Slight Tremor Visible Yawning Observation: 0= None Anxiety or Irritability: 1=Feels Anxious/Irritable Goose Flesh Skin: 0=Smooth Skin COWS Score: 8 S Progress Note (SOAP) Subjective: 39 yearsj old female admitted on 08/17/19 for benzo and opiate withdrawal sx management treating with valium and methadone detox regiments requests to be seen by a psychiatrist for anxiety treated with gabapentin psychiatrist referral Objective: 08/19/19 09:57 Vital Signs - 24 hr 08/18/19 08/18/19 08/19/19 12:44 20:35 06:21 Temperature 97.3 F L 97.5 F L 97.3 F L Pulse Rate 81 69 74 Respiratory 18 16 16 Rate Blood Pressure 120/72 111/73 100/58 L O2 Sat by Pulse 99 99 97 Oximetry (%) 08/19/19 09:15 Temperature 97.6 F Pulse Rate 71 Respiratory 16 Rate Blood Pressure 112/68 O2 Sat by Pulse Oximetry (%) Laboratory Tests 08/18/19 08/18/19 08/18/19 07:55 07:55 07:55 WBC 10.5 H RBC 4.29 Hgb 13.0 Hct 40.0 D MCV 93.3 MCH 30.4 MCHC 32.6 RDW 13.0 Plt Count 324 D MPV 10.0 Sodium 140 Potassium 4.5 Chloride 105 Carbon Dioxide 32 Anion Gap 3 L BUN 9.1 Creatinine 0.8 Est GFR (CKD-EPI)AfAm 106.88 Est GFR (CKD-EPI)NonAf 92.22 Random Glucose 69 L Calcium 9.0 Total Bilirubin 0.1 L AST 11 L ALT 15 Alkaline Phosphatase 57 Total Protein 7.0 Albumin 3.3 L Urine Color Urine Appearance Urine pH Ur Specific [place] Urine Protein Urine Glucose (UA) Urine Ketones Urine Blood Urine Nitrite Urine Bilirubin Urine Urobilinogen Ur Leukocyte Esterase Urine WBC (Auto) Urine RBC (Auto) Urine Casts (Auto) U Epithel Cells (Auto) Urine Bacteria (Auto) Syphilis Serology Non-reactive 08/18/19 07:55 WBC RBC Hgb Hct MCV MCH MCHC RDW Plt Count MPV Sodium Potassium Chloride Carbon Dioxide Anion Gap BUN Creatinine Est GFR (CKD-EPI)AfAm Est GFR (CKD-EPI)NonAf Random Glucose Calcium Total Bilirubin AST ALT Alkaline Phosphatase Total Protein Albumin Urine Color Yellow Urine Appearance Cloudy Urine pH 7.0 Ur Specific [place] 1.023 Urine Protein Negative Urine Glucose (UA) Negative Urine Ketones Negative Urine Blood Trace Urine Nitrite Negative Urine Bilirubin Negative Urine Urobilinogen 0.2 Ur Leukocyte Esterase 1+ H Urine WBC (Auto) 128 Urine RBC (Auto) 18 Urine Casts (Auto) 2 U Epithel Cells (Auto) >36 Urine Bacteria (Auto) 1895 Syphilis Serology lab noted uti 08/19/19 10:00 continue bactrim ds bid Assessment: 08/19/19 10:00 benzo and opiate withdrawal 08/19/19 10:00 uti anxiety Plan: valium and methadone regiments bactrim ds bid psychiatric referral for gabapentin
[2019-08-19] MEDS ORDERED: METHADONE HCL 10 MG TABLET (FOR DETOX USE ONLY) PO ONE (10:00)
[2019-08-19] MEDS: NICOTINE 14 MG/24 HOURS TOPICAL PATCH TD SCH (10:08)
[2019-08-19] MEDS: SULFAMETHOXAZOLE/TRIMETHOPRIM 800MG/160MG D.S. TABLET PO SCH ×2 (10:09→21:57)
[2019-08-19] MEDS: FAMOTIDINE 20 MG TABLET PO SCH (10:11)
[2019-08-19] MEDS: NICOTINE POLACRILEX 2 MG GUM BUC PRN ×2 (10:11→21:26)
[2019-08-19] MEDS: PRENATAL VITAMINS W/ FOLIC ACID TABLET (FP) PO SCH (10:12)
[2019-08-19] MEDS: MAG HYDROX/AL HYDROX/SIMETH 30 ML UNIT-DOSE CUP PO PRN (12:05)
[2019-08-19] MEDS ORDERED: MASKS NR ONE (13:33)
[2019-08-19] MEDS ORDERED: METHOCARBAMOL 500 MG TABLET PO ONE (15:53)
[2019-08-19] MEDS: METHOCARBAMOL 500 MG TABLET PO PRN (15:57)
[2019-08-19] MEDS: BISMUTH SUBSALICYLATE 524 MG/30 ML UD PO PRN ×3 (16:39→21:26)
[2019-08-19] MEDS: GABAPENTIN 100 MG CAPSULE PO PRN (17:12)
[2019-08-19] MEDS: OLANZapine 10 MG TABLET PO SCH (21:57)
[2019-08-19] MEDS: MELATONIN 5 MG TABLETS PO SCH (21:57)
[2019-08-19] MEDS: THIAMINE HCL 100 MG TABLET (FP) PO SCH (21:57)
[2019-08-19] MEDS: HYDROCORTISONE 2.5% TOPICAL CREAM 30 GM TUBE PR SCH (22:01)
[2019-08-20] MEDS: hydrOXYzine PAMOATE 25 MG CAPSULE (FP) PO SCH ×5 (05:16→22:04)
[2019-08-20] MEDS: GABAPENTIN 100 MG CAPSULE PO PRN (05:19)
[2019-08-20] MEDS: MAG HYDROX/AL HYDROX/SIMETH 30 ML UNIT-DOSE CUP PO PRN ×2 (05:19→11:28)
[2019-08-20] MEDS ORDERED: diazePAM 5 MG TABLET PO ONE (06:00)
[2019-08-20] MEDS ORDERED: MASKS NR ONE (06:50)
[2019-08-20] MEDS ORDERED: METHADONE HCL 5 MG TABLET (FOR DETOX USE ONLY) ONE (08:56)
[2019-08-20] MEDS ORDERED: METHADONE HCL 10 MG TABLET (FOR DETOX USE ONLY) ONE (08:56)
[2019-08-20] MEDS: PRENATAL VITAMINS W/ FOLIC ACID TABLET (FP) PO SCH (09:46)
[2019-08-20] MEDS: NICOTINE 14 MG/24 HOURS TOPICAL PATCH TD SCH (09:46)
[2019-08-20] MEDS: SULFAMETHOXAZOLE/TRIMETHOPRIM 800MG/160MG D.S. TABLET PO SCH ×2 (09:46→22:05)
[2019-08-20] MEDS: FAMOTIDINE 20 MG TABLET PO SCH (09:46)
[2019-08-20] MEDS: NICOTINE POLACRILEX 2 MG GUM BUC PRN ×2 (09:47→20:11)
[2019-08-20] MEDS ORDERED: METHADONE (DETOX) 10 MG, METHADONE (DETOX) 5 MG PO ONE (10:00)
[2019-08-20] MEDS ORDERED: GABAPENTIN 100 MG CAPSULE PO PRN (10:36)
--- NOTE | 2019-08-20 10:41 | PN ---
S CIWA - CIWA Score Nausea/Vomitin-Mild Nausea/No Vomiting Muscle Tremors: 1-None Visible, but [place] Anxiety: 1-Mildly Anxious Agitation: 0-Normal Activity Paroxysmal Sweats: No Perspiration Orientation: 0-Oriented Tacttile Disturbances: 0-None Auditory Disturbances: 0-None Visual Disturbances: 0-None Headache: 3-Moderate CIWA-Ar Total Score: 6 BHS COWS - Scale Resting Pulse: 1= [place] 81-100 Sweatin= No chills or Flushing Restless Observation: 0= Sits Still Pupil Size: 0= Normal to Room Light Bone or Joint Aches: 1= Mild Discomfort Runny Nose/ Eye Tearin= None GI Upset > 30mins: 2= Nausea/Diarrhea Tremor Observation of Outstretched Hands: 1= Tremor [place], Not Seen Yawning Observation: 0= None Anxiety or Irritability: 1=Feels Anxious/Irritable Goose Flesh Skin: 0=Smooth Skin COWS Score: 6 S Progress Note (SOAP) Subjective: 39 years old female admitted on 08/17/19 for benzo and opiate withdrawal sx management treating with valium and methadone detox regiments reports chronic nerogenic pain of the arms and legs and back neurontin 100 mg po tid prn reports mild release by neurontin increase neurontin to 200 mg po bid prn Objective: 08/20/19 10:40 Vital Signs - 24 hr 08/19/19 08/19/19 08/19/19 12:31 17:14 20:30 Temperature 98 F 97.5 F L 97.7 F Pulse Rate 78 78 88 Respiratory 20 16 18 Rate Blood Pressure 109/72 106/73 116/68 O2 Sat by Pulse 98 97 98 Oximetry (%) 08/20/19 08/20/19 06:04 08:37 Temperature 97.3 F L 96.8 F L Pulse Rate 69 88 Respiratory 16 18 Rate Blood Pressure 100/64 105/69 O2 Sat by Pulse 97 Oximetry (%) Laboratory Tests 08/17/19 08/17/19 08/18/19 19:12 23:05 07:55 WBC RBC Hgb Hct MCV MCH MCHC RDW Plt Count MPV Sodium Potassium Chloride Carbon Dioxide Anion Gap BUN Creatinine Est GFR (CKD-EPI)AfAm Est GFR (CKD-EPI)NonAf Random Glucose Calcium Total Bilirubin AST ALT Alkaline Phosphatase Total Protein Albumin Urine Color Urine Appearance Urine pH Ur Specific [place] Urine Protein Urine Glucose (UA) Urine Ketones Urine Blood Urine Nitrite Urine Bilirubin Urine Urobilinogen Ur Leukocyte Esterase Urine WBC (Auto) Urine RBC (Auto) Urine Casts (Auto) U Epithel Cells (Auto) Urine Bacteria (Auto) POC Urine HCG, Qual Negative Syphilis Serology Non-reactive COVID-19 (MYRTLE) Not detected 08/18/19 08/18/19 08/18/19 07:55 07:55 07:55 WBC 10.5 H RBC 4.29 Hgb 13.0 Hct 40.0 D MCV 93.3 MCH 30.4 MCHC 32.6 RDW 13.0 Plt Count 324 D MPV 10.0 Sodium 140 Potassium 4.5 Chloride 105 Carbon Dioxide 32 Anion Gap 3 L BUN 9.1 Creatinine 0.8 Est GFR (CKD-EPI)AfAm 106.88 Est GFR (CKD-EPI)NonAf 92.22 Random Glucose 69 L Calcium 9.0 Total Bilirubin 0.1 L AST 11 L ALT 15 Alkaline Phosphatase 57 Total Protein 7.0 Albumin 3.3 L Urine Color Yellow Urine Appearance Cloudy Urine pH 7.0 Ur Specific [place] 1.023 Urine Protein Negative Urine Glucose (UA) Negative Urine Ketones Negative Urine Blood Trace Urine Nitrite Negative Urine Bilirubin Negative Urine Urobilinogen 0.2 Ur Leukocyte Esterase 1+ H Urine WBC (Auto) 128 Urine RBC (Auto) 18 Urine Casts (Auto) 2 U Epithel Cells (Auto) >36 Urine Bacteria (Auto) 1895 POC Urine HCG, Qual Syphilis Serology COVID-19 (MYRTLE) uti denies frequency denies burning denies hesitation 08/20/19 10:41 continue bactrim ds bid 08/20/19 10:42 Assessment: 08/20/19 10:41 benzo and opiate withdrawal uti uncomplicated Plan: valium and methadone regiments bactrim ds bid
[2019-08-20] MEDS: ACETAMINOPHEN 325 MG TABLET (FP) PO PRN (10:58)
[2019-08-20] MEDS: METHOCARBAMOL 500 MG TABLET PO PRN ×2 (10:59→17:35)
[2019-08-20] MEDS: PHENYLEPHRINE HCL/COCOA BUTTER SUPPOSITORY RC SCH ×2 (13:27→22:05)
[2019-08-20] MEDS ORDERED: PHENYLEPHRINE HCL/COCOA BUTTER SUPPOSITORY RC ONE (14:30)
--- NOTE | 2019-08-20 14:39 | PN ---
Psychiatric Progress Note Vital Signs: Vital Signs Period Temp Pulse Resp BP Sys/[place] Pulse Ox Last 24 Hr 96.8 F-98.0 F 69-88 16-18 100-116/64-74 97-98 Date of Session: 08/20/19 Chief Complaint:: " Can my gabapentin dose be raised ? " HPI: Day 4 of detoxification. Patient is doing fine. Ms Munson wanted to see the psychiatrist to discuss optimization of her dose of gabapentin. " I was prescribed that medication for two reasons : pain and anxiety. I used to be on 600 mg three times a day, in the past. Right now, they gave me 200 mg twice a day. It's not helping me. I need more." Hospitalization remains manageable. ROS: Unremarkable. Patient is alert, fully oriented, cooperative, ambulatory. Steady gait. Current Medications: Active Medications Generic Name Dose Route Start Last Admin Trade Name Freq PRN Reason Stop Dose Admin Acetaminophen 650 mg 08/17/19 22:14 08/20/19 10:58 Tylenol - PO 650 mg Q6H PRN Administration PAIN LEVEL 4 - 6 Acetaminophen 650 mg 08/17/19 22:14 Tylenol - PO Q6H PRN FEVER Al Hydroxide/Mg Hydroxide 30 ml 08/17/19 22:14 08/20/19 11:28 Mylanta Oral Suspension - PO 30 ml Q6H PRN Administration DYSPEPSIA Bismuth Subsalicylate 524 mg 08/17/19 22:14 08/19/19 21:26 Pepto-Bismol - PO 524 mg Q1H PRN Administration DIARRHEA Bupropion HCl 150 mg 08/19/19 10:00 08/20/19 09:46 Wellbutrin Xl - PO 150 mg DAILY DONNY Administration [place] Butter/Phenylephrine 1 each 08/20/19 13:30 08/20/19 13:27 Preparation H Suppository RC 1 each BID DONNY Administration Diazepam 10 mg 08/17/19 22:14 08/19/19 19:54 Valium - PO 08/20/19 22:13 10 mg Q4H PRN Administration WITHDRAWAL(CONT SUBST) Dicyclomine HCl 10 mg 08/17/19 22:14 Bentyl - PO 08/23/19 22:16 Q6H PRN Abdominal Cramping Eucalyptus/Menthol/Phenol/Sorbitol 1 each 08/17/19 22:14 Cepastat Lozenge - MM 08/23/19 22:15 Q4H PRN SORE THROAT Famotidine 20 mg 08/18/19 17:45 08/20/19 09:46 Pepcid - PO 20 mg DAILY DONNY Administration Gabapentin 200 mg 08/20/19 10:36 08/20/19 10:54 Neurontin - PO 200 mg Q12H PRN Administration BACK PAIN Guaifenesin 10 ml 08/17/19 22:14 Robitussin - PO Q6H PRN COUGH Hydrocortisone 1 applic 08/18/19 22:00 08/19/19 22:01 Anusol 2.5% Hc Cream - CA 1 applic HS DONNY Administration Hydroxyzine Pamoate 25 mg 08/18/19 06:00 08/20/19 13:30 Vistaril - PO 08/23/19 22:15 25 mg Q4HWA DONNY Administration Ibuprofen 400 mg 08/17/19 22:14 Motrin - PO Q6H PRN PAIN LEVEL 1 - 3 Magnesium Citrate 300 ml 08/17/19 22:14 08/18/19 15:25 Citroma - PO 300 ml Q48H PRN Administration CONSTIPATION Magnesium Hydroxide 30 ml 08/17/19 22:14 08/18/19 08:43 Milk Of Magnesia - PO 30 ml PRN PRN Administration CONSTIPATION Melatonin 5 mg 08/18/19 22:00 08/19/19 21:57 Melatonin PO 5 mg HS DONNY Administration Methadone HCl 5 mg 08/22/19 06:00 Dolophine - PO 08/22/19 06:01 ONCE@0600 ONE Methadone HCl 10 mg 08/21/19 10:00 Dolophine - PO 08/21/19 10:01 ONCE ONE Methocarbamol 500 mg 08/17/19 22:14 08/20/19 10:59 Robaxin - PO 08/23/19 22:15 500 mg Q6H PRN Administration MUSCLE SPASMS Nicotine 14 mg 08/18/19 10:00 08/20/19 09:46 Nicoderm Patch - TD 14 mg DAILY DONNY Administration Nicotine Polacrilex 2 mg 08/17/19 22:14 08/20/19 09:47 Nicorette Gum - BUC 2 mg Q2H PRN Administration NICOTINE REPLACEMENT RX Olanzapine 5 mg 08/18/19 22:00 08/19/19 21:57 Zyprexa - PO 5 mg HS DONNY Administration Multivit/Folic Acid/Iron 1 tab 08/18/19 10:00 08/20/19 09:46 Vitamins (Sjr) - PO 1 tab DAILY DONNY Administration Pseudoephedrine/Triprolidine 1 combo 08/17/19 22:14 Actifed - PO Q6H PRN NASAL CONGESTION Thiamine HCl 100 mg 08/18/19 22:00 08/19/19 21:57 Vitamin B1 - PO 100 mg HS DONNY Administration Trimethoprim/Sulfamethoxazole 1 each 08/18/19 13:00 08/20/19 09:46 Bactrim Ds - PO 08/23/19 12:59 1 each BID DONNY Administration Medication(s) Change(s): Gabapentin dose is raised, with the patient's consent, to 300 mg po tid. Side effects/benefits discussed in this session. Ms Munson is in agreement with this plan of care. Current Side Effect: No Lab tests ordered: No Lab tests reviewed: Yes Provider note:: Chart reviewed. Met with the patient. Self-report of effectiveness of gabapentin is validated. Request for optimization of gabapentin is fulfilled (see Medications Changes section for details). Ms Munson is receptive to teaching about non-pharmacological strategies for relief of anxiety. Mental status remains stable. Continue detoxification. Total face to face time:: 25 Mental Status Exam - Mental Status Exam Alert and Oriented to: Time, Place, Person Cognitive Function: Good Patient Appearance: Well Groomed Mood: Nervous, Hopeful Affect: Appropriate, Normal Range Patient Behavior: Fatigued, Appropriate, Cooperative Speech Pattern: Clear, Appropriate Voice Loudness: Normal Thought Process: Intact, Goal Oriented Thought Disorder: Not Present Hallucinations: Denies Suicidal Ideation: Denies Insight/Judgement: Fair Sleep: Well Appetite: Good Gait/Station: Normal Psychiatric Treatment Plan - Problem List (1) Opioid dependence with withdrawal Current Visit: Yes Comment: . (2) Sedative, hypnotic or anxiolytic dependence with withdrawal, uncomplicated Current Visit: Yes Comment: . (3) Cocaine dependence Current Visit: Yes Qualifiers: Substance use status: uncomplicated Qualified Code(s): F14.20 - Cocaine dependence, uncomplicated Comment: . (4) Nicotine dependence Current Visit: Yes Qualifiers: Nicotine product type: cigarettes Substance use status: uncomplicated Qualified Code(s): F17.210 - Nicotine dependence, cigarettes, uncomplicated Comment: . (5) Substance induced mood disorder Current Visit: Yes Comment: . (6) History of posttraumatic stress disorder (PTSD) Current Visit: Yes Comment: .
[2019-08-20] MEDS: GABAPENTIN 100 MG CAPSULE PO SCH (22:04)
[2019-08-20] MEDS: HYDROCORTISONE 2.5% TOPICAL CREAM 30 GM TUBE PR SCH (22:04)
[2019-08-20] MEDS: THIAMINE HCL 100 MG TABLET (FP) PO SCH (22:04)
[2019-08-20] MEDS: diazePAM 5 MG TABLET PO PRN (22:04)
[2019-08-20] MEDS: OLANZapine 10 MG TABLET PO SCH (22:05)
[2019-08-20] MEDS: MELATONIN 5 MG TABLETS PO SCH (22:05)
[2019-08-21] MEDS: GABAPENTIN 100 MG CAPSULE PO SCH (05:28)
[2019-08-21] MEDS: hydrOXYzine PAMOATE 25 MG CAPSULE (FP) PO SCH ×5 (05:28→21:43)
[2019-08-21] MEDS: MAG HYDROX/AL HYDROX/SIMETH 30 ML UNIT-DOSE CUP PO PRN ×2 (05:32→13:26)
[2019-08-21] MEDS ORDERED: METHADONE HCL 10 MG TABLET (FOR DETOX USE ONLY) PO ONE (10:00)
[2019-08-21] MEDS: SULFAMETHOXAZOLE/TRIMETHOPRIM 800MG/160MG D.S. TABLET PO SCH ×2 (10:07→21:43)
[2019-08-21] MEDS: PRENATAL VITAMINS W/ FOLIC ACID TABLET (FP) PO SCH (10:07)
[2019-08-21] MEDS: PHENYLEPHRINE HCL/COCOA BUTTER SUPPOSITORY RC SCH (10:08)
[2019-08-21] MEDS: FAMOTIDINE 20 MG TABLET PO SCH (10:08)
[2019-08-21] MEDS: NICOTINE 14 MG/24 HOURS TOPICAL PATCH TD SCH (10:10)
[2019-08-21] MEDS: NICOTINE POLACRILEX 2 MG GUM BUC PRN (10:11)
[2019-08-21] MEDS: METHOCARBAMOL 500 MG TABLET PO PRN (10:26)
--- NOTE | 2019-08-21 11:06 | PN ---
[facility] CIWA - CIWA Score Nausea/Vomitin-No Nausea/No Vomiting Muscle Tremors: 1-None Visible, but [place] Anxiety: 1-Mildly Anxious Agitation: 1-Slight > Activity Paroxysmal Sweats: No Perspiration Orientation: 0-Oriented Tacttile Disturbances: 0-None Auditory Disturbances: 0-None Visual Disturbances: 0-None Headache: 1-Very Mild CIWA-Ar Total Score: 4 S COWS - Scale Resting Pulse: 1= [place] 81-100 Sweatin= No chills or Flushing Restless Observation: 0= Sits Still Pupil Size: 0= Normal to Room Light Bone or Joint Aches: 1= Mild Discomfort Runny Nose/ Eye Tearin= None GI Upset > 30mins: 0= None Tremor Observation of Outstretched Hands: 1= Tremor [place], Not Seen Yawning Observation: 0= None Anxiety or Irritability: 1=Feels Anxious/Irritable Goose Flesh Skin: 0=Smooth Skin COWS Score: 4 S Progress Note (SOAP) Subjective: 39 years old female admitted on 08/17/19 for benzo and opiate withdrawal sx management treating with valium and methadone detox regiment requests higher dosage of gabapentin psychiatrist referral alert oriented x 3 feeling better today discussing aftercare with staff encourage 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 Objective: 08/21/19 11:08 Vital Signs - 24 hr 08/20/19 08/20/19 08/20/19 12:27 14:16 16:38 Temperature 98.0 F 97.7 F Pulse Rate 88 87 Respiratory 18 18 Rate Blood Pressure 110/74 120/78 O2 Sat by Pulse 98 Oximetry (%) 08/20/19 08/21/19 08/21/19 20:36 05:56 08:46 Temperature 97.3 F L 97.1 F L 97.3 F L Pulse Rate 94 H 63 88 Respiratory 18 18 16 Rate Blood Pressure 111/69 100/61 117/79 O2 Sat by Pulse 95 96 Oximetry (%) Laboratory Tests 08/17/19 08/17/19 08/18/19 19:12 23:05 07:55 WBC RBC Hgb Hct MCV MCH MCHC RDW Plt Count MPV Sodium Potassium Chloride Carbon Dioxide Anion Gap BUN Creatinine Est GFR (CKD-EPI)AfAm Est GFR (CKD-EPI)NonAf Random Glucose Calcium Total Bilirubin AST ALT Alkaline Phosphatase Total Protein Albumin Urine Color Urine Appearance Urine pH Ur Specific [place] Urine Protein Urine Glucose (UA) Urine Ketones Urine Blood Urine Nitrite Urine Bilirubin Urine Urobilinogen Ur Leukocyte Esterase Urine WBC (Auto) Urine RBC (Auto) Urine Casts (Auto) U Epithel Cells (Auto) Urine Bacteria (Auto) POC Urine HCG, Qual Negative Syphilis Serology Non-reactive COVID-19 (MYRTLE) Not detected 08/18/19 08/18/19 08/18/19 07:55 07:55 07:55 WBC 10.5 H RBC 4.29 Hgb 13.0 Hct 40.0 D MCV 93.3 MCH 30.4 MCHC 32.6 RDW 13.0 Plt Count 324 D MPV 10.0 Sodium 140 Potassium 4.5 Chloride 105 Carbon Dioxide 32 Anion Gap 3 L BUN 9.1 Creatinine 0.8 Est GFR (CKD-EPI)AfAm 106.88 Est GFR (CKD-EPI)NonAf 92.22 Random Glucose 69 L Calcium 9.0 Total Bilirubin 0.1 L AST 11 L ALT 15 Alkaline Phosphatase 57 Total Protein 7.0 Albumin 3.3 L Urine Color Yellow Urine Appearance Cloudy Urine pH 7.0 Ur Specific [place] 1.023 Urine Protein Negative Urine Glucose (UA) Negative Urine Ketones Negative Urine Blood Trace Urine Nitrite Negative Urine Bilirubin Negative Urine Urobilinogen 0.2 Ur Leukocyte Esterase 1+ H Urine WBC (Auto) 128 Urine RBC (Auto) 18 Urine Casts (Auto) 2 U Epithel Cells (Auto) >36 Urine Bacteria (Auto) 1895 POC Urine HCG, Qual Syphilis Serology COVID-19 (MYRTLE) uti continue bactrim ds bid Assessment: 08/21/19 11:09 benzo and opiate withdrawal uti Plan: valium and methadone regiments bactrim ds bid
--- NOTE | 2019-08-21 11:25 | PN ---
[facility] Progress Note Note: Psychiatry Attending's note : Patient seen. Stable mental status. No clinical complaints. Titration of gabapentin continues. As previously discussed with the patient. See my note of 08/20/19. No new issues. Patient is doing fine. Detoxification in progress. Dose of gabapentin is optimized to 400 mg po tid. With the patient's informed consent.
[2019-08-21] MEDS: GABAPENTIN 400 MG CAPSULE PO SCH ×2 (13:02→21:43)
[2019-08-21] MEDS: PHENYLEPHRINE HCL/COCOA BUTTER SUPPOSITORY RC PRN (16:44)
[2019-08-21] MEDS: MELATONIN 5 MG TABLETS PO SCH (21:43)
[2019-08-21] MEDS: THIAMINE HCL 100 MG TABLET (FP) PO SCH (21:44)
[2019-08-21] MEDS: HYDROCORTISONE 2.5% TOPICAL CREAM 30 GM TUBE PR SCH (21:44)
[2019-08-21] MEDS: OLANZapine 10 MG TABLET PO SCH (21:44)
--- NOTE | 2019-08-21 21:46 | PN ---
[facility] Progress Note Note: called by nursing for pt requesting to leave the facility , pt reports feeling emotionally triggered by the presence of police on the unit this evening and wanting to leave as a result. . Encouraged pt to complete detox and leave for rehab in the a.m. as scheduled. Pt eventually agreed to stay and requested medications due and phone call w/ family ( sister ) . Nursing aware . Vital Signs - 24 hr 08/21/19 08/21/19 08/21/19 05:56 08:46 13:00 Temperature 97.1 F L 97.3 F L 97.5 F L Pulse Rate 63 88 102 H Respiratory 18 16 18 Rate Blood Pressure 100/61 117/79 129/83 O2 Sat by Pulse 96 97 Oximetry (%) 08/21/19 16:38 Temperature 97.7 F Pulse Rate 95 H Respiratory 18 Rate Blood Pressure 114/70 O2 Sat by Pulse Oximetry (%)
[2019-08-22] MEDS: METHOCARBAMOL 500 MG TABLET PO PRN (03:13)
[2019-08-22] MEDS: GABAPENTIN 400 MG CAPSULE PO SCH ×2 (05:39→13:25)
[2019-08-22] MEDS: hydrOXYzine PAMOATE 25 MG CAPSULE (FP) PO SCH ×3 (05:39→13:25)
[2019-08-22] MEDS ORDERED: METHADONE HCL 5 MG TABLET (FOR DETOX USE ONLY) PO ONE (06:00)
[2019-08-22] MEDS: PHENYLEPHRINE HCL/COCOA BUTTER SUPPOSITORY RC PRN (07:28)
[2019-08-22] MEDS: PRENATAL VITAMINS W/ FOLIC ACID TABLET (FP) PO SCH (09:31)
[2019-08-22] MEDS: SULFAMETHOXAZOLE/TRIMETHOPRIM 800MG/160MG D.S. TABLET PO SCH (09:31)
[2019-08-22] MEDS: FAMOTIDINE 20 MG TABLET PO SCH (09:32)
[2019-08-22] MEDS: NICOTINE 14 MG/24 HOURS TOPICAL PATCH TD SCH (09:32)
[2019-08-22] MEDS: NICOTINE POLACRILEX 2 MG GUM BUC PRN (09:33)
--- NOTE | 2019-08-22 10:10 | DS ---
[facility] Detox Discharge Summary Admission Date: 08/17/19 Discharge Date: 08/22/19 - History Present History: Opioid Dependence, Sedative Dependence Additional Comments: 39 years old female admitted on 08/19/19 for benzo and opiate withdrawal sx management treated with valium and methadone detox regiment seen by psychiatrist resume wellbutrin gabapentin zyprexa ms chau has completed the valium and methadone regiments and is tolerated well alert oriented x 3 speech clearly coherently ambulating steady gaits cardiac s1s2 regular rate rhythm Vital Signs - 24 hr 08/21/19 08/21/19 08/21/19 13:00 16:38 20:33 Temperature 97.5 F L 97.7 F 97.3 F L Pulse Rate 102 H 95 H 99 H Respiratory 18 18 18 Rate Blood Pressure 129/83 114/70 120/73 O2 Sat by Pulse 97 95 Oximetry (%) 08/22/19 08/22/19 06:21 08:42 Temperature 97.3 F L 97.4 F L Pulse Rate 78 94 H Respiratory 16 16 Rate Blood Pressure 103/66 121/76 O2 Sat by Pulse 98 98 Oximetry (%) respiratory clear lung sounds bilaterally on auscultation extremities full range of motion Pertinent Past History: time for discharge 35 minutes - Physical Exam Results Vital Signs: Vital Signs Temperature 97.4 F L 08/22/19 08:42 Pulse Rate 94 H 08/22/19 08:42 Respiratory Rate 16 08/22/19 08:42 Blood Pressure 121/76 08/22/19 08:42 O2 Sat by Pulse Oximetry (%) 98 08/22/19 08:42 Pertinent Admission Physical Exam Findings: benzo and opiate withdrawal Laboratory Tests 08/17/19 08/17/19 08/18/19 19:12 23:05 07:55 WBC RBC Hgb Hct MCV MCH MCHC RDW Plt Count MPV Sodium Potassium Chloride Carbon Dioxide Anion Gap BUN Creatinine Est GFR (CKD-EPI)AfAm Est GFR (CKD-EPI)NonAf Random Glucose Calcium Total Bilirubin AST ALT Alkaline Phosphatase Total Protein Albumin Urine Color Urine Appearance Urine pH Ur Specific [place] Urine Protein Urine Glucose (UA) Urine Ketones Urine Blood Urine Nitrite Urine Bilirubin Urine Urobilinogen Ur Leukocyte Esterase Urine WBC (Auto) Urine RBC (Auto) Urine Casts (Auto) U Epithel Cells (Auto) Urine Bacteria (Auto) POC Urine HCG, Qual Negative Syphilis Serology Non-reactive COVID-19 (MYRTLE) Not detected 08/18/19 08/18/19 08/18/19 07:55 07:55 07:55 WBC 10.5 H RBC 4.29 Hgb 13.0 Hct 40.0 D MCV 93.3 MCH 30.4 MCHC 32.6 RDW 13.0 Plt Count 324 D MPV 10.0 Sodium 140 Potassium 4.5 Chloride 105 Carbon Dioxide 32 Anion Gap 3 L BUN 9.1 Creatinine 0.8 Est GFR (CKD-EPI)AfAm 106.88 Est GFR (CKD-EPI)NonAf 92.22 Random Glucose 69 L Calcium 9.0 Total Bilirubin 0.1 L AST 11 L ALT 15 Alkaline Phosphatase 57 Total Protein 7.0 Albumin 3.3 L Urine Color Yellow Urine Appearance Cloudy Urine pH 7.0 Ur Specific [place] 1.023 Urine Protein Negative Urine Glucose (UA) Negative Urine Ketones Negative Urine Blood Trace Urine Nitrite Negative Urine Bilirubin Negative Urine Urobilinogen 0.2 Ur Leukocyte Esterase 1+ H Urine WBC (Auto) 128 Urine RBC (Auto) 18 Urine Casts (Auto) 2 U Epithel Cells (Auto) >36 Urine Bacteria (Auto) 1895 POC Urine HCG, Qual Syphilis Serology COVID-19 (MYRTLE) uti continue bactrim ds bid x 2 days picking up bactrim ds from preferred pharmacy - Treatment Hospital Course: Detox Protocol Followed, Detoxed Safely, Responded well, Discharged Condition Good, Rehab Referral Accepted Patient has Accepted a Rehab Referral to: [facility] - Medication Discharge Medications: Ambulatory Orders Prazosin HCl [Minipress -] 5 mg PO BID 06/29/11 Bupropion HCl [Wellbutrin Xl -] 300 mg PO DAILY 05/20/16 Oxycodone HCl/Acetaminophen [Percocet 10-325 mg Tablet] 1 each PO TID 05/20/16 Esomeprazole Magnesium [Nexium 24Hr] 20 mg PO DAILY 08/18/19 Olanzapine [Zyprexa -] 5 mg PO HS 08/18/19 Naloxone HCl [Narcan] 4 mg NS ASDIR PRN #1 spray 08/21/19 Bupropion HCl [Wellbutrin Xl -] 150 mg PO DAILY #30 tab.sr.24h 08/22/19 Gabapentin 400 mg PO TID #90 capsule 08/22/19 Olanzapine [Zyprexa -] 5 mg PO HS #30 tablet 08/22/19 Sulfamethoxazole/Trimethoprim [Bactrim DS -] 1 each PO BID #7 tablet 08/22/19 - Diagnosis (1) Hemorrhage Status: Chronic (2) Opioid dependence with withdrawal Status: Acute (3) Sedative, hypnotic or anxiolytic dependence with withdrawal, uncomplicated Status: Acute (4) Substance induced mood disorder Status: Suspected (5) GERD (gastroesophageal reflux disease) Status: Chronic Qualifiers: Esophagitis presence: without esophagitis Qualified Code(s): K21.9 - Gastro-esophageal reflux disease without esophagitis (6) Nicotine dependence Status: Acute Qualifiers: Nicotine product type: cigarettes Substance use status: in withdrawal Qualified Code(s): F17.213 - Nicotine dependence, cigarettes, with withdrawal (7) PPD positive Status: Resolved - AMA Did Patient Leave Against Medical Advice: No CIWA Score - CIWA Score Nausea/Vomitin-No Nausea/No Vomiting Muscle Tremors: 1-None Visible, but [place] Anxiety: 0-No Anxiety, at Ease Agitation: 0-Normal Activity Paroxysmal Sweats: No Perspiration Orientation: 0-Oriented Tacttile Disturbances: 0-None Auditory Disturbances: 0-None Visual Disturbances: 0-None Headache: 1-Very Mild CIWA-Ar Total Score: 2 COWS (PN) - Opiate Withdrawal Resting Pulse: 1= [place] 81-100 Sweatin= No chills or Flushing Restless Observation: 0= Sits Still Pupil Size: 0= Normal to Room Light Bone or Joint Aches: 0= None Runny Nose/ Eye Tearin= None GI Upset > 30mins: 0= None Tremor Observation of Outstretched Hands: 0= None Yawning Observation: 0= None Anxiety or Irritability: 1=Feels Anxious/Irritable Go[place] Flesh Skin: 0=Smooth Skin COWS Score: 2
[2019-08-22 13:02] VITALS: BP 114/76; PULSE 98; TEMP 98.1
== END 2019-08-22 13:25 | disposition other institution (70) | DRG 773 ==
LOC: YASAS 18:12 → Y3N 22:58
PROVIDERS: ADMIT Allergy & Immunology; ATTEND Allergy & Immunology
PROC: HZ2ZZZZ Detoxification Services for Substance Abuse Treatment (ICD-10-PCS; principal; 2019-08-17)
DX: F11.23 Opioid dependence with withdrawal (principal); F13.230 Sedative, hypnotic or anxiolytic dependence with withdrawal, uncomplicated; F14.20 Cocaine dependence, uncomplicated; F17.210 Nicotine dependence, cigarettes, uncomplicated; F31.9 Bipolar disorder, unspecified; F19.24 Other psychoactive substance dependence with psychoactive substance-induced mood disorder; F43.10 Post-traumatic stress disorder, unspecified; F41.9 Anxiety disorder, unspecified; K21.9 Gastro-esophageal reflux disease without esophagitis; D64.9 Anemia, unspecified; N39.0 Urinary tract infection, site not specified; M79.2 Neuralgia and neuritis, unspecified; M62.838 Other muscle spasm; M41.9 Scoliosis, unspecified; R76.11 Nonspecific reaction to tuberculin skin test without active tuberculosis; Z88.8 Allergy status to other drugs, medicaments and biological substances; Z56.0 Unemployment, unspecified
CPT/HCPCS: 36415; 71046-TC-FY; 80053; 81003; 81025; 85027; 86780; 93005; 93010; Q0162; U0003

== ENCOUNTER 2020-02-24 11:04 | Inpatient (IN) | payer OTHER ==
[2020-02-24 13:19] VITALS: BMI 21.1
[2020-02-24] MEDS ORDERED: MAG HYDROX/AL HYDROX/SIMETH 30 ML UNIT-DOSE CUP PO PRN (19:01)
[2020-02-24] MEDS ORDERED: ACETAMINOPHEN 325 MG TABLET (FP) PO PRN (19:01)
[2020-02-24] MEDS ORDERED: MENTHOL/PHENOL 1 EACH UD MM PRN (19:01)
[2020-02-24] MEDS ORDERED: METHADONE HCL 10 MG TABLET (FOR DETOX USE ONLY) PO ONE (19:01)
[2020-02-24] MEDS ORDERED: IBUPROFEN 400 MG TABLET (FP) PO PRN (19:01)
[2020-02-24] MEDS ORDERED: BISMUTH SUBSALICYLATE 524 MG/30 ML UD PO PRN (19:01)
[2020-02-24] MEDS ORDERED: MAGNESIUM HYDROX 2400MG/30ML ORAL SUSPENSION 30 ML CUP PO PRN (19:01)
[2020-02-24] MEDS ORDERED: ONDANSETRON *ODT* 4 MG TABLET SL PRN (19:01)
[2020-02-24] MEDS ORDERED: MAGNESIUM CITRATE 300 ML BOTTLE PO PRN (19:01)
[2020-02-24] MEDS ORDERED: NICOTINE 14 MG/24 HOURS TOPICAL PATCH TD ONE (19:09)
[2020-02-24] MEDS: chlordiazePOXIDE HCL 25 MG CAPSULE PO SCH (22:08)
[2020-02-24] MEDS: MELATONIN 5 MG TABLETS PO SCH (22:08)
[2020-02-24] MEDS: THIAMINE HCL 100 MG TABLET (FP) PO SCH (22:08)
[2020-02-24] MEDS: NICOTINE POLACRILEX 2 MG GUM BUC PRN (23:14)
[2020-02-25] MEDS: chlordiazePOXIDE HCL 25 MG CAPSULE PO PRN ×2 (02:04→13:57)
[2020-02-25] MEDS: chlordiazePOXIDE HCL 25 MG CAPSULE PO SCH ×4 (07:50→22:10)
[2020-02-25] MEDS ORDERED: METHADONE HCL 5 MG TABLET (FOR DETOX USE ONLY) ONE (09:21)
[2020-02-25] MEDS ORDERED: METHADONE HCL 10 MG TABLET (FOR DETOX USE ONLY) ONE (09:21)
[2020-02-25] MEDS ORDERED: METHADONE (DETOX) 20 MG, METHADONE (DETOX) 5 MG PO ONE (10:00)
[2020-02-25] MEDS: PRENATAL VITAMINS W/ FOLIC ACID TABLET (FP) PO SCH (10:08)
[2020-02-25] MEDS: NICOTINE 14 MG/24 HOURS TOPICAL PATCH TD SCH (10:08)
[2020-02-25] MEDS: NICOTINE POLACRILEX 2 MG GUM BUC PRN ×2 (11:33→15:38)
[2020-02-25 12:06] LABS: POTASSIUM 4.1 mmol/L (3.5-5.1)
[2020-02-25 12:16] LABS: CALCIUM 8.7 mg/dL (8.5-10.1)
[2020-02-25 12:17] LABS: ALBUMIN 3.1 g/dl (3.4-5.0); BLOOD UREA NITROGEN 11.9 mg/dL (7-18); HEMATOCRIT 38.8 % (32.4-45.2); HEMOGLOBIN 12.9 GM/dL (10.7-15.3); MCH 30.7 pg (25.7-33.7); MCHC 33.2 g/dl (32.0-36.0); MEAN CELL VOLUME 92.6 fl (80-96); MEAN PLT VOLUME 9.4 fl (7.5-11.1); PLATELET COUNT 275 K/MM3 (134-434); RBC 4.19 M/mm3 (3.60-5.2); RDW 13.3 % (11.6-15.6); WHITE BLOOD COUNT 7.4 K/mm3 (4.0-10.0)
[2020-02-25 12:20] LABS: CREATININE 0.7 mg/dL (0.55-1.3)
[2020-02-25 12:21] LABS: BILIRUBIN,TOTAL 0.8 mg/dL (0.2-1)
[2020-02-25] MEDS: OLANZapine 5 MG TABLET PO SCH (21:02)
[2020-02-25] MEDS: THIAMINE HCL 100 MG TABLET (FP) PO SCH (22:10)
[2020-02-25] MEDS: MELATONIN 5 MG TABLETS PO SCH (22:10)
[2020-02-26] MEDS: chlordiazePOXIDE HCL 25 MG CAPSULE PO SCH ×4 (04:24→22:42)
[2020-02-26] MEDS ORDERED: METHADONE HCL 10 MG TABLET (FOR DETOX USE ONLY) PO ONE (10:00)
[2020-02-26] MEDS: PRENATAL VITAMINS W/ FOLIC ACID TABLET (FP) PO SCH (10:35)
[2020-02-26] MEDS: METHOCARBAMOL 500 MG TABLET PO PRN ×3 (10:35→22:42)
[2020-02-26] MEDS: NICOTINE 14 MG/24 HOURS TOPICAL PATCH TD SCH (10:39)
[2020-02-26] MEDS: ACETAMINOPHEN 325 MG TABLET (FP) PO PRN (13:14)
[2020-02-26] MEDS: chlordiazePOXIDE HCL 25 MG CAPSULE PO PRN (13:18)
[2020-02-26] MEDS: NICOTINE POLACRILEX 2 MG GUM BUC PRN ×3 (14:13→18:44)
[2020-02-26] MEDS: MELATONIN 5 MG TABLETS PO SCH (22:08)
[2020-02-26] MEDS: OLANZapine 5 MG TABLET PO SCH (22:08)
[2020-02-26] MEDS: THIAMINE HCL 100 MG TABLET (FP) PO SCH (22:08)
[2020-02-27] MEDS ORDERED: chlordiazePOXIDE HCL 10 MG CAPSULE PO PRN
[2020-02-27] MEDS: chlordiazePOXIDE HCL 10 MG CAPSULE PO SCH ×2 (06:27→10:11)
[2020-02-27] MEDS: METHOCARBAMOL 500 MG TABLET PO PRN ×2 (06:28→12:32)
[2020-02-27] MEDS ORDERED: METHADONE HCL 5 MG TABLET (FOR DETOX USE ONLY) ONE (09:15)
[2020-02-27] MEDS ORDERED: METHADONE HCL 10 MG TABLET (FOR DETOX USE ONLY) ONE (09:16)
[2020-02-27] MEDS ORDERED: METHADONE (DETOX) 10 MG, METHADONE (DETOX) 5 MG PO ONE (10:00)
[2020-02-27] MEDS: NICOTINE 14 MG/24 HOURS TOPICAL PATCH TD SCH (10:12)
[2020-02-27] MEDS: PRENATAL VITAMINS W/ FOLIC ACID TABLET (FP) PO SCH (10:12)
[2020-02-27 13:15] VITALS: BP 121/83; PULSE 99; TEMP 98.2
[2020-02-27] MEDS: ACETAMINOPHEN 325 MG TABLET (FP) PO PRN (14:47)
[2020-02-27] MEDS ORDERED: LIDOCAINE 5% TOPICAL PATCH TP SCH (15:00)
[2020-02-27] MEDS ORDERED: LIDOCAINE PATCH REMOVAL MC SCH (22:00)
[2020-02-28] MEDS ORDERED: chlordiazePOXIDE HCL 10 MG CAPSULE PO SCH (05:00)
[2020-02-28] MEDS ORDERED: METHADONE HCL 10 MG TABLET (FOR DETOX USE ONLY) PO ONE (10:00)
[2020-02-29] MEDS ORDERED: chlordiazePOXIDE HCL 10 MG CAPSULE PO ONE (05:00)
[2020-02-29] MEDS ORDERED: METHADONE HCL 5 MG TABLET (FOR DETOX USE ONLY) PO ONE (06:00)
== END 2020-02-27 18:04 | disposition left against medical advice (07) | DRG 770 ==
LOC: YASAS 11:04 → Y6N 18:33
PROVIDERS: ADMIT Allergy & Immunology; ATTEND Allergy & Immunology
PROC: HZ2ZZZZ Detoxification Services for Substance Abuse Treatment (ICD-10-PCS; principal; 2020-02-24)
DX: F11.23 Opioid dependence with withdrawal (principal); F10.230 Alcohol dependence with withdrawal, uncomplicated; F17.210 Nicotine dependence, cigarettes, uncomplicated; F43.10 Post-traumatic stress disorder, unspecified; F33.9 Major depressive disorder, recurrent, unspecified; F31.81 Bipolar II disorder; F19.24 Other psychoactive substance dependence with psychoactive substance-induced mood disorder; F19.282 Other psychoactive substance dependence with psychoactive substance-induced sleep disorder; K21.9 Gastro-esophageal reflux disease without esophagitis; Z86.11 Personal history of tuberculosis; Z88.8 Allergy status to other drugs, medicaments and biological substances
CPT/HCPCS: 36415; 80053; 81025; 85027; 86780; 93005; 93010; C9803; U0003

== ENCOUNTER 2020-06-30 06:42 | Inpatient (IN) | payer OTHER ==
[2020-06-30 07:07] VITALS: BMI 18.3
[2020-06-30] MEDS ORDERED: ACETAMINOPHEN 325 MG TABLET (FP) PO PRN ×2 (08:57)
[2020-06-30] MEDS ORDERED: MAG HYDROX/AL HYDROX/SIMETH 30 ML UNIT-DOSE CUP PO PRN (08:57)
[2020-06-30] MEDS ORDERED: IBUPROFEN 400 MG TABLET (FP) PO PRN (08:57)
[2020-06-30] MEDS ORDERED: MENTHOL/PHENOL 1 EACH UD MM PRN (08:57)
[2020-06-30] MEDS ORDERED: MAGNESIUM CITRATE 300 ML BOTTLE PO PRN (08:57)
[2020-06-30] MEDS ORDERED: BISMUTH SUBSALICYLATE 524 MG/30 ML PO PRN (08:57)
[2020-06-30] MEDS ORDERED: cloNIDine HCL 0.1 MG TABLET PO PRN (08:57)
[2020-06-30] MEDS ORDERED: MAGNESIUM HYDROX 2400MG/30ML ORAL SUSPENSION 30 ML CUP PO PRN (08:57)
[2020-06-30] MEDS ORDERED: ONDANSETRON *ODT* 4 MG TABLET SL PRN (08:57)
[2020-06-30] MEDS ORDERED: METHADONE HCL 10 MG TABLET (FOR DETOX USE ONLY) PO ONE (09:45)
[2020-06-30] MEDS: NICOTINE 21 MG/24 HOURS TOPICAL PATCH TD SCH (12:53)
[2020-06-30] MEDS: METHOCARBAMOL 500 MG TABLET PO PRN ×2 (12:53→23:09)
[2020-06-30] MEDS: hydrOXYzine PAMOATE 25 MG CAPSULE (FP) PO SCH ×4 (12:53→23:08)
[2020-06-30] MEDS: PRENATAL VITAMINS W/ FOLIC ACID TABLET (FP) PO SCH (12:53)
[2020-06-30 13:39] LABS: HEMATOCRIT 40.6 % (32.4-45.2); HEMOGLOBIN 13.5 GM/dL (10.7-15.3); MCH 30.8 pg (25.7-33.7); MCHC 33.3 g/dl (32.0-36.0); MEAN CELL VOLUME 92.5 fl (80-96); MEAN PLT VOLUME 9.8 fl (7.5-11.1); PLATELET COUNT 312 K/MM3 (134-434); RBC 4.39 M/mm3 (3.60-5.2); RDW 12.7 % (11.6-15.6); WHITE BLOOD COUNT 11.4 K/mm3 (4.0-10.0)
[2020-06-30 13:44] LABS: CALCIUM 9.3 mg/dL (8.5-10.1)
[2020-06-30 13:45] LABS: BLOOD UREA NITROGEN 10.5 mg/dL (7-18)
[2020-06-30 13:48] LABS: CREATININE 0.7 mg/dL (0.55-1.3)
[2020-06-30 13:50] LABS: BILIRUBIN,TOTAL 0.4 mg/dL (0.2-1); TOT PROT 7.4 g/dl (6.4-8.2)
[2020-06-30] MEDS: THIAMINE HCL 100 MG TABLET (FP) PO SCH (23:08)
[2020-06-30] MEDS: MELATONIN 5 MG TABLETS PO SCH (23:09)
[2020-07-01] MEDS: hydrOXYzine PAMOATE 25 MG CAPSULE (FP) PO SCH ×2 (07:30→11:03)
[2020-07-01] MEDS ORDERED: METHADONE HCL 10 MG TABLET (FOR DETOX USE ONLY) ONE (09:14)
[2020-07-01] MEDS ORDERED: METHADONE HCL 5 MG TABLET (FOR DETOX USE ONLY) ONE (09:15)
[2020-07-01] MEDS ORDERED: METHADONE (DETOX) 20 MG, METHADONE (DETOX) 5 MG PO ONE (10:00)
[2020-07-01] MEDS: NICOTINE 21 MG/24 HOURS TOPICAL PATCH TD SCH (11:00)
[2020-07-01] MEDS: PRENATAL VITAMINS W/ FOLIC ACID TABLET (FP) PO SCH (11:00)
[2020-07-01] MEDS: hydrOXYzine PAMOATE 25 MG CAPSULE (FP) PO PRN (11:00)
[2020-07-01] MEDS ORDERED: MASKS NR ONE (20:06)
[2020-07-01] MEDS: MELATONIN 5 MG TABLETS PO SCH (22:21)
[2020-07-01] MEDS: QUEtiapine FUMARATE 100 MG TABLET (FP) PO SCH (22:21)
[2020-07-01] MEDS: THIAMINE HCL 100 MG TABLET (FP) PO SCH (22:21)
[2020-07-02] MEDS: NICOTINE 21 MG/24 HOURS TOPICAL PATCH TD SCH (09:43)
[2020-07-02] MEDS: hydrOXYzine PAMOATE 25 MG CAPSULE (FP) PO PRN ×3 (09:44→22:11)
[2020-07-02] MEDS: METHOCARBAMOL 500 MG TABLET PO PRN ×2 (09:44→18:03)
[2020-07-02] MEDS: PRENATAL VITAMINS W/ FOLIC ACID TABLET (FP) PO SCH (09:45)
[2020-07-02] MEDS ORDERED: METHADONE HCL 10 MG TABLET (FOR DETOX USE ONLY) PO ONE (10:00)
[2020-07-02 10:09] LABS: HEMATOCRIT 41.4 % (32.4-45.2); HEMOGLOBIN 13.7 GM/dL (10.7-15.3); MCH 30.8 pg (25.7-33.7); MEAN CELL VOLUME 93.2 fl (80-96); MEAN PLT VOLUME 9.9 fl (7.5-11.1); PLATELET COUNT 257 K/MM3 (134-434); RBC 4.44 M/mm3 (3.60-5.2); WHITE BLOOD COUNT 6.7 K/mm3 (4.0-10.0)
[2020-07-02] MEDS: THIAMINE HCL 100 MG TABLET (FP) PO SCH (22:10)
[2020-07-02] MEDS: QUEtiapine FUMARATE 100 MG TABLET (FP) PO SCH (22:10)
[2020-07-02] MEDS: MELATONIN 5 MG TABLETS PO SCH (22:10)
[2020-07-03] MEDS ORDERED: METHADONE HCL 10 MG TABLET (FOR DETOX USE ONLY) ONE (09:29)
[2020-07-03] MEDS ORDERED: METHADONE HCL 5 MG TABLET (FOR DETOX USE ONLY) ONE (09:29)
[2020-07-03] MEDS ORDERED: METHADONE (DETOX) 10 MG, METHADONE (DETOX) 5 MG PO ONE (10:00)
[2020-07-03 10:07] LABS: SARS-CoV-2 NAA Not Detected (Not Detected)
[2020-07-03] MEDS: PRENATAL VITAMINS W/ FOLIC ACID TABLET (FP) PO SCH (10:55)
[2020-07-03] MEDS: NICOTINE 21 MG/24 HOURS TOPICAL PATCH TD SCH (10:55)
[2020-07-03] MEDS: hydrOXYzine PAMOATE 25 MG CAPSULE (FP) PO PRN ×2 (10:56→22:05)
[2020-07-03] MEDS: METHOCARBAMOL 500 MG TABLET PO PRN (10:57)
[2020-07-03] MEDS: diazePAM 5 MG TABLET PO PRN ×2 (15:51→22:04)
[2020-07-03] MEDS: THIAMINE HCL 100 MG TABLET (FP) PO SCH (22:02)
[2020-07-03] MEDS: QUEtiapine FUMARATE 100 MG TABLET (FP) PO SCH (22:02)
[2020-07-03] MEDS: MELATONIN 5 MG TABLETS PO SCH (22:03)
[2020-07-03] MEDS: NICOTINE POLACRILEX 2 MG GUM BUC PRN (22:30)
[2020-07-04] MEDS ORDERED: METHADONE HCL 10 MG TABLET (FOR DETOX USE ONLY) PO ONE (10:00)
[2020-07-04] MEDS: PRENATAL VITAMINS W/ FOLIC ACID TABLET (FP) PO SCH (10:38)
[2020-07-04] MEDS: NICOTINE 21 MG/24 HOURS TOPICAL PATCH TD SCH (10:38)
[2020-07-04] MEDS: diazePAM 5 MG TABLET PO PRN (10:40)
[2020-07-04 13:50] VITALS: BP 117/82; PULSE 81; TEMP 97.8
[2020-07-04] MEDS: NICOTINE POLACRILEX 2 MG GUM BUC PRN (15:43)
[2020-07-05] MEDS ORDERED: METHADONE HCL 5 MG TABLET (FOR DETOX USE ONLY) PO ONE (06:00)
== END 2020-07-04 17:05 | disposition home or self-care (01) | DRG 773 ==
LOC: YASAS 06:42 → Y3N 11:35
PROVIDERS: ADMIT Allergy & Immunology; ATTEND Allergy & Immunology
PROC: HZ2ZZZZ Detoxification Services for Substance Abuse Treatment (ICD-10-PCS; principal; 2020-06-30)
DX: F11.23 Opioid dependence with withdrawal (principal); F10.230 Alcohol dependence with withdrawal, uncomplicated; F14.20 Cocaine dependence, uncomplicated; F17.210 Nicotine dependence, cigarettes, uncomplicated; F19.24 Other psychoactive substance dependence with psychoactive substance-induced mood disorder; F31.9 Bipolar disorder, unspecified; F43.10 Post-traumatic stress disorder, unspecified; D64.9 Anemia, unspecified; G47.00 Insomnia, unspecified; K21.9 Gastro-esophageal reflux disease without esophagitis; M41.9 Scoliosis, unspecified; M54.31 Sciatica, right side; R76.11 Nonspecific reaction to tuberculin skin test without active tuberculosis; Z62.810 Personal history of physical and sexual abuse in childhood; R63.4 Abnormal weight loss; Z68.1 Body mass index [BMI] 19.9 or less, adult; Z91.5 Personal history of self-harm; Z88.8 Allergy status to other drugs, medicaments and biological substances; Z91.19 Patient's noncompliance with other medical treatment and regimen
CPT/HCPCS: 36415; 80053; 81025; 85027; 86780; 93005; 93010; C9803; J0735; U0003; U0005